=== PATIENT | female | born 1985 | race Caucasian/White ===

== ENCOUNTER 2024-10-10 12:27 | Outpatient (REF) | payer MEDICAID, SELFPAY | END 2024-10-10 12:28 | disposition home or self-care (01) | LOC: LAB 12:27 | PROVIDERS: Visit Provider Obstetrics & Gynecology | DX: N92.0 Excessive and frequent menstruation with regular cycle (principal) | CPT/HCPCS: 88305 ==

== ENCOUNTER 2024-10-26 10:00 | Outpatient (OUT) | payer MEDICAID, SELFPAY ==
--- OUTSIDE RECORDS SUMMARY | 2024-10-26 10:06 | XMS_ITS | CCD ---
Author Organization [facility] CliniSyca Care Team Providers Care Bell Captain Name Role Phone ANGY, CHRISTIAN Unavailable Unavailable ANGY, CHRISTIAN Unavailable Unavailable ANGY, CHRISTIAN Unavailable Unavailable ANGY, CHRISTIAN Unavailable Unavailable ANGY, CHRISTIAN Unavailable Unavailable REQUEST, NONE LISTED Unavailable Unavailable ANGY, CHRISTIAN Unavailable Unavailable ANGY, CHRISTIAN Unavailable Unavailable REQUEST, NONE LISTED Unavailable Unavailable ANGY, CHRISTIAN Unavailable Unavailable AGUBOSIM, ISABEL Unavailable Unavailable ANGY, CHRISTIAN Unavailable Unavailable ANGY, CHRISTIAN Unavailable Unavailable REQUEST, NONE LISTED Unavailable Unavailable ANGY, CHRISTIAN Unavailable Unavailable DILCIA DELUCA Unavailable Unavailable ANGY, CHRISTIAN Unavailable Unavailable ANGY, CHRISTIAN Unavailable Unavailable ANGY, CHRISTIAN Unavailable Unavailable ANGY, CHRISTIAN Unavailable Unavailable ANGY, CHRISTIAN Unavailable Unavailable CARLA BAGLEY Attending Unavailable Urban Newton MD Primary Care Provider Maye COFFEY, Bailee Unavailable Felicita Celaya MD Unavailable ANGY, CHRISTIAN Attending Unavailable MIRELA PARKS Attending Unavailable MIRELA PARKS Referring Unavailable SERVICES, [facility] Primary Care Unava ilable SERVICES, [facility] Primary Care Unava ilable NAZ JOLLY Attending Unavailable SERVICES, [facility] Primary Care Unava ilable GINNY BRIAN Attending Unavailable GINNY BRIAN Referring Unavailable SERVICES, [facility] Primary Care Unava ilable SERVICES, [facility] Primary Care Unava ilable SERVICES, [facility] Primary Care Unava ilable SERVICES, [facility] Primary Care Unava ilable CARLA BLACK Attending Unavaila ble SERVICES, [facility] Primary Care Unava ilable PHILIP MILNER Attending Unavailable SERVICES, [facility] Primary Care Unava ilable SRI SANCHEZ Attending Unavailable ANGY, CHRISTIAN R Referring Unavailable SERVICES, [facility] Unava CHRISTIAN Connors Referring Unavailable SERVICES, [facility] Christian Lehman DO Attending Provider [phone] Christian Travis Attending Unavailable Christian Travis Admitting Unavailable Allergies Allergy Classification Reported Allergen(s) Allergy Type Date of Onset Reaction(s) Facility (2 sources) amoxicillin Drug Allergy 10-11-19 16 RASH [facility] Repository (2 sources) desonide Drug Allergy 05-02-20 13 AOF [facility] Repository (3 sources) Penicillins; Translations: [PENICILLINS] Drug allergy (disorder) 05-02-20 13 RASH [facility] Repository (2 sources) vancomycin Drug Allergy 05-02-20 13 AOF [facility] Repository (5 sources) Acetaminophen / HYDROcodone Drug Allergy 02-09-20 13 Itching [facility] (1 source) Adhesive Tape Propensity to adverse reactions to substance 02-09-20 13 Other: See Comments [facility] (1 source) Penicillins Drug Intolerance 02-03-20 13 Vomiting [facility] (5 sources) Vancomycin Drug Allergy 02-09-20 13 Rash [facility] (4 sources) Penicillins Drug Intolerance 02-03-20 13 GI intolerance [facility] (4 sources) Wound Dressing Adhesive Drug Intolerance 02-09-20 13 [facility] (1 source) Glycopeptides (Antibiotic); Translations: [VANCOMYCIN ANALOGUES] Propensity to adverse reactions to drug (disorder) 06-26-20 [facility] Repository (1 source) Latex Propensity to adverse reactions 10-11-19 [facility] Healthcare Work Phone: (1 source) Sulfamethoxazole / Trimethoprim Drug Allergy 10-11-19 [facility] Medications Current Medications Medication Drug Class(es) Dates Sig (Normalized) Sig (Original) cephalexin 500 mg oral capsule (2 sources) Cephalosporin Antibacterial Start: 09-20-2024 End: 09-27-2024 cephalexin (Keflex) 500 MG capsule Indications: Need for prophylactic antibiotic Take 1 capsule (500 mg) by mouth in the morning and 1 capsule (500 mg) at noon and 1 capsule (500 mg) in the evening and 1 capsule (500 mg) before bedtime. Do all this for 7 days. 28 capsule 09/20/2024 09/27/2024 Active rizatriptan 10 mg oral tablet (1 source) Serotonin-1b and Serotonin-1d Receptor Agonist Start: 03-16-2020 take 1 tablet by mouth every two hours as needed, then take 2 tablets by mouth every twenty-four hours as needed rizatriptan (MAXALT) 10 mg tablet Indications: Migraine without aura and without status migrainosus, not intractable Take 1 tablet by mouth as needed (at onset of migraines, may repeat in 2 hrs. no more than 2 in 24 hrs or 2 days a week). 12 tablet 11 03/16/2020 Active tiZANidine 4 mg oral tablet (3 sources) Central alpha-2 Adrenergic Agonist Start: 12-30-2023 End: 09-20-2024 take 1 tablet by mouth at bedtime for muscle spasms tiZANidine (Zanaflex) 4 MG tablet Indications: Trapezius muscle spasm take 1 tablet by mouth at bedtime if needed for muscle spasm 10 tablet 1 12/30/2023 09/20/2024 Discontinued (Other) ZOLMitriptan 5 mg oral tablet (1 source) Serotonin-1b and Serotonin-1d Receptor Agonist Start: 02-16-2020 take 1 tablet by mouth every other day as needed ZOLMitriptan (ZOMIG) 5 mg tablet Indications: Intractable chronic migraine without aura and without status migrainosus , Medication overuse headache Take 1 tablet by mouth as needed (at onset of migraines, no more than 2 days a week). 12 tablet 11 02/16/2020 Active Problems Active Problems Problem Classification Problem Date Documented Date Episodic/Chronic Abdominal pain (1 source) Pain in female pelvis; Translations: [Pelvic and perineal pain] 10-10-2024 Episodic Asthma (1 source) Unspecified asthma, uncomplicated; Translations: [UNSPECIFIED ASTHMA UNCOMPLICATED] Onset: 12-31-19 Chronic Contraceptive and procreative management (5 sources) Encounter for sterilization; Translations: [ENCOUNTER FOR STERILIZATION] Onset: 12-18-19 Episodic Headache; including migraine (1 source) Chronic intractable migraine without aura; Translations: [Chronic migraine without aura, intractable, without status migrainosus] Onset: 10-03-1910-02-2014 Chronic Immunizations and screening for infectious disease (1 source) Encounter for screening for human papillomavirus (HPV); Translations: [ENC SCREENING HUMAN PAPILLOMAVIRUS] Onset: 12-17-19 Episodic Malaise and fatigue (1 source) Other fatigue; Translations: [OTHER FATIGUE] Onset: 11-24-19 Episodic Medical examination/evaluatio n (4 sources) Encounter for other preprocedural examination; Translations: [ENCOUNTER OTHER PREPROCEDURAL EXAM] Onset: 12-16-19 Episodic Menstrual disorders (8 sources) Irregular menstruation, unspecified; Translations: [Menorrhagia] Onset: 12-15-19 18 09-20-2024 Chronic Mood disorders (1 source) Major depressive disorder, single episode, unspecified; Translations: [CURTIS DEPRESS D/O SINGLE EPIS UNS] Onset: 12-31-19 Nausea and vomiting (2 sources) Nausea and vomiting; Translations: [Nausea with vomiting, unspecified] Onset: 09-26-19 Episodic Nervous system congenital anomalies (1 source) Congenital hydrocephalus, unspecified; Translations: [CONGENITAL HYDROCEPHALUS UNS] Onset: 12-31-19 Chronic Noninfectious gastroenteritis (1 source) Noninfective gastroenteritis and colitis, unspecified; Translations: [Noninfective gastroenteritis and colitis, unspecified] Onset: 07-29-19 Episodic Other aftercare (2 sources) Antibiotic prophylaxis indicated; Translations: [residential (current) use of antibiotics] 09-20-2024 Episodic Other connective tissue disease (1 source) Other muscle spasm; Translations: [Other muscle spasm] Onset: 09-26-19 Episodic Other female genital disorders (1 source) Abnormal uterine bleeding; Translations: [Abnormal uterine and vaginal bleeding, unspecified] 10-10-2024 Chronic Other gastrointestinal disorders (1 source) Diarrhea Onset: 07-29-19 Episodic Other nervous system disorders (1 source) Ventriculoperitoneal shunt in situ; Translations: [Presence of cerebrospinal fluid drainage device] Onset: 06-12-20 13 Chronic Other nervous system disorders (1 source) Hydrocephalus; Translations: [Hydrocephalus, unspecified] Onset: 06-12-20 13 Chronic Other nutritional; endocrine; and metabolic disorders (4 sources) Abnormal weight loss; Translations: [ABNORMAL WEIGHT LOSS] Onset: 11-14-19 Episodic Spondylosis; intervertebral disc disorders; other back problems (1 source) Neck pain Onset: 03-02-20 25 Episodic Substance-related disorders (2 sources) Nicotine dependence, cigarettes, uncomplicated; Translations: [Cannabis use, unspecified, uncomplicated] Onset: 12-31-19 18 Chronic Unclassified (4 sources) Encounter for screening for malignant neoplasm of cervix; Translations: [ENC SCREENING MALIG NEOPLASM CERV] Onset: 12-16-19 18 Episodic Unclassified (1 source) Other general symptoms and signs; Translations: [OTHER GENERAL SYMPTOMS AND SIGNS] Onset: 11-24-19 18 Episodic Unclassified (1 source) Unspecified ovarian cyst, left side; Translations: [UNSPECIFIED OVARIAN CYST LEFT SIDE] Onset: 12-17-19 18 Unclassified (1 source) GI Problem Onset: 07-29-19 25 Unclassified (1 source) Lump on Leg, Pain in Leg Onset: 10-27-19 24 Past or Other Problems Problem Classification Problem Date Documented Da te Episodic/Chronic Complications of surgical procedures or medical care (1 source) Stitch abscess; Translations: [Infection following a procedure, superficial incisional surgical site, initial encounter] Onset: 02-04-2013 Episodic Headache; including migraine (3 sources) Headache; Translations: [Headache] Onset: 09-20-2014 10-02-2014 Episodic Other connective tissue disease (1 source) Pain in right foot; Translations: [Pain in right foot] Onset: 03-21-2024 Episodic Other connective tissue disease (1 source) Foot pain Onset: 03-21-2024 Episodic Other connective tissue disease (1 source) Pain in lower limb Onset: 10-27-2023 Episodic Other injuries and conditions due to external causes (1 source) Other injury of unspecified body region, initial encounter; Translations: [Other injury of unspecified body region, initial encounter] Onset: 10-27-2023 Episodic Other non-traumatic joint disorders (1 source) Pain in right shoulder; Translations: [Pain in right shoulder] Onset: 11-05-2023 Episodic Other non-traumatic joint disorders (1 source) Shoulder pain Onset: 11-05-2023 Episodic Urinary tract infections (1 source) Urinary tract infectious disease; Translations: [Urinary tract infection, site not specified] Onset: 02-04-2013 Episodic Results Test Name Value Interpretation Reference Range Facility HCG ( test) Ql (U)O rdered By: Nona Izquierdo on 10-11-2024 Interpretation and review of laboratory results Normal [facility] Preg Test, Ur Negative Negative [facility] Momo 10-10-2024 L ------- Specimen: [id number] Received: 10/11/24 Status: NANI Sprague Num: [id number] Spec Type: Surgical Subm Dr: Christian Travis Tissues: A Endometrium - Biopsy (ENDOMETRIUM BX) Procedures: HE/2, Kassie/Shelby L4 Age/ Patient Sex Location Account Attending Physician Sachi Collins 39/F LABELL [id number] Christian Travis SPEC NUM: [id number] RECD: 10/11/24 STATUS: NANI SPRAGUE NUM: [id number] CARLO: 10/10/[address] [facility] [address]: Christian Travis ENTERED: 10/11/[address] [facility] [address]: Maxwell,Lab SPEC TYPE: Surgical DEPT: JANIS MEDINA ORDERED: HE/2, Gross/Micro L4 ORDERED: HE/2, Gross/Micro L4 Pathological Diagnosis Endometrial biopsy -Multiple small strips of the slightly disordered proliferative endometrium of the mid-phase type without hyperplasia or atypia -Incidental minor admixed portions of the ectocervical and endocervical epithelial elements also without dysplasia Clinical Information Menorrhagia Gross Description Part A is received in formalin labeled with the patients name, date of , and EM BX is a pale west mucoid material, admixed with mackenzie-pink to red-brown, delicate tissue fragments, 2.2 x 1.3 x 0.2 cm in aggregate. The specimen is filtered and entirely submitted in a single cassette. (1, ns, [id number]) PACO Specimen: [id number] Received: 10/11/24 Status: NANI Celestine Num: [id number] Spec Type: Surgical Subm Dr: Christian Travis Tissues: A Endometrium - Biopsy (ENDOMETRIUM BX) Procedures: HE/2, Gross/Micro L4 Patient: Sachi Collins [id number] (Continued) Specimen: [id number] Received: 10/11/24 (Continued) Signed (signature on file) Matthew Beauchamp MD 10/12/24 1114 Specimen: [id number] Received: 10/11/24 Status: NANI Celestine Num: [id number] Spec Type: Surgical Subm Dr: Christian Travis Tissues: A Endometrium - Biopsy (ENDOMETRIUM BX) Procedures: Kassie LAND/Shelby Cobian Patient: Sachi Collins [id number] (Continued) Specimen: [id number] Received: 10/11/24 (Continued) Microscopic Description Microscopic examination is performed CPT Codes 91340 Specimen: [id number] Received: 10/11/24 Status: NANI Sprague Num: [id number] Spec Type: Surgical Subm Dr: Christian Travis Tissues: A Endometrium - Biopsy (ENDOMETRIUM BX) Procedures: MORELIA/Vidal, Gross/Micro L4 Patient: Sachi Collins [id number] (Continued) Signed (signature on file) Josafat Beauchamp MD 10/12/24 1114 Normal [facility] US PELVIC WITH TRANSVAGINALo n 09-29-2024 US PELVIC WITH TRANSVAGINAL US PELVIC WITH TRANSVAGINAL HISTORY: A 39-year-old female with the history of the menorrhagia with irregular cycles. TECHNIQUE: Multiple real-time images of the pelvis are obtained by using transabdominal and transvaginal approaches. Color Doppler study is performed. COMPARISON: Comparison is made with pelvic ultrasound examination of 04/03/2006. FINDINGS: Uterus measures 11.5 x 5.9 x 4.4 cm. Endometrial echo stripe thickness was a 1.5 cm. No focal mass is seen in the uterine wall. There are nabothian cyst in the cervical portion of the uterus. Right ovary measures 5.8 x 6.0 x 3.0 cm. There is a cyst in the right ovary and measures 2.5 x 2.4 x 2.9 cm. Left ovary measures 3.8 x 2.2 x 1.3 cm. Left ovary appears unremarkable. No other adnexal mass is identified. Color Doppler study reveals presence of the color Doppler flow in both ovaries. No evidence of free fluid in the cul-de-sac. IMPRESSION: * Prominent uterus without evidence of discrete mass. Nabothian cyst in the cervical portion of the uterus. Thickening of the endometrial echo stripe. * There is a 2.5 x 2.4 x 2.9 cm right ovarian cyst. Left ovary is normal. * No free fluid is seen in the cul-de-sac. Finalized by Aubrey Rodriguez MD on 09/29/2024 6:22 PM Normal [facility] CBC AND AUTO DIFFon 09-29-19 25 ABSOLUTE BASOPHIL 0.1 X10E9/L Normal 0.0-0.2 [facility] Comment on above: Performed By: #### 3 024-7, HA1C, 3016-3, 38945-9, CBCA #### [facility] ([id number]) [address], [address] [place] [address] #### PINR, [id number] #### [facility] ([id number]) [address] [place] [address] ABSOLUTE NEUTROPHIL 9.1 X10E9/L High 1.5-6.6 [facility] Comment on above: Performed By: #### 3 024-7, BRAYAN, 3015-09, , CBCA #### [facility] ([id number]) [address], [address] [place] [address] #### BRIELLE, [id number] #### [facility] ([id number]) [address] [place] [address] Basophils/100 WBC (Bld) 0.5 % Normal [facility] Comment on above: Performed By: #### 3 024-7, BRAYAN, 3015-09, , CBCA #### [facility] ([id number]) [address] [facility] [address] [place] [address] #### BRIELLE, [id number] #### [facility] ([id number]) [address] [place] [address] Eosinophils (Bld) [#/Vol] 0.1 10*3/uL Normal 0.0-0.4 [facility] Comment on above: Performed By: #### 3 024-7, BRAYAN, 3015-09, , CBCA #### [facility] ([id number]) [address], [address] [place] [address] #### PINR, [id number] #### [facility] ([id number]) [address] [place] [address] Eosinophils/100 WBC (Bld) 1.0 % Normal [facility] Comment on above: Performed By: #### 3 024-7, BRAYAN, 3015-09, , CBCA #### [facility] ([id number]) [address], [address] [place] [address] #### DAVR, [id number] #### [facility] ([id number]) [address] [place] [address] Erythrocyte distribution width (RBC) [Ratio] 15.5 % High 11.5-15.0 [facility] Comment on above: Performed By: #### 3 024-7, HA1C, 3015-09, , CBCA #### [facility] ([id number]) [address] [address], [address] [place] [address] #### PINR, [id number] #### [facility] ([id number]) [address] [place] [address] Hematocrit (Bld) [Volume fraction] 37.1 % Normal 35-47 [facility] Comment on above: Performed By: #### 3 024-7, HAGermán, 3015-09, , CBCA #### [facility] ([id number]) [address] [facility], [address] [place] [address] #### PINR, [id number] #### [facility] ([id number]) [address] [place] [address] Hemoglobin (Bld) [Mass/Vol] 12.5 g/dL Normal 11.7-15.5 [facility] Comment on above: Performed By: #### 3 024-7, HAGermán, 3015-09, , CBCA #### [facility] ([id number]) [address] [facility] [facility], [address] [place] [address] #### PINR, [id number] #### [facility] ([id number]) [address] [place] [address] Lymphocytes (Bld) [#/Vol] 1.8 10*3/uL Normal 1.0-3.5 [facility] Comment on above: Performed By: #### 3 024-7, HAGermán, 3, , CBCA #### [facility] ([id number]) [address] [facility] [facility] [address] [place] [address] #### BRIELLE, [id number] #### [facility] ([id number]) [address] [place] [address] 43798 Lymphocytes/100 WBC (Bld) 15.6 % Normal [facility] Comment on above: Performed By: #### 3 024-7, HA1C, 3, , CBCA #### [facility] ([id number]) [address] [facility], [address] [address] #### BRIELLE, [id number] #### [facility] ([id number]) [address] [place] [address]2320 MCH (RBC) [Entitic mass] 29.7 pg Normal 27-34 [facility] Comment on above: Performed By: #### 3 024-7, HA1C, 3015-09, , CBCA #### [facility] ([id number]) [address] [place] [address], [address] [address] #### BRIELLE, [id number] #### [facility] ([id number]) [address] [place] [address]248 MCHC (RBC) [Mass/Vol] 33.6 g/dL Normal 32-36 [facility] Comment on above: Performed By: #### 3 024-7, HA1C, 3, , CBCA #### [facility] ([id number]) [address] [facility], [address] [address] #### PINR, [id number] #### [facility] ([id number]) [address] [place] [address]15 MCV (RBC) [Entitic vol] 88 fL Normal 80-100 [facility] Comment on above: Performed By: #### 3 024-7, BRAYAN, 3015-09, , CBCA #### [facility] ([id number]) [address], [address] [place] [address] #### DAVR, [id number] #### [facility] ([id number]) [address] [place] [address]606 Monocytes (Bld) [#/Vol] 0.5 10*3/uL Normal 0-0.9 [facility] Comment on above: Performed By: #### 3 024-7, BRAYAN, 3015-09, , CBCA #### [facility] ([id number]) [address] [facility], [address] [place] [address] #### BRIELLE, [id number] #### [facility] ([id number]) [address] [place] [address] Monocytes/100 WBC (Bld) 4.4 % Normal [facility] Comment on above: Performed By: #### 3 024-7, BRAYAN, 3015-09, , CBCA #### [facility] ([id number]) [address], [address] [place] [address] #### BRIELLE, [id number] #### [facility] ([id number]) [address] [place] [address]86 Neutrophils/100 WBC (Bld) 78.5 % Normal [facility] Comment on above: Performed By: #### 3 024-7, BRAYAN, 3015-09, , CBCA #### [facility] ([id number]) [address], [address] [place] [address] #### BRIELLE, [id number] #### [facility] ([id number]) [address] [place] [address] Platelet mean volume (Bld) [Entitic vol] 7.8 fL Normal 7-12 [facility] Comment on above: Performed By: #### 3 024-7, HA1C, 3015-3, , CBCA #### [facility] ([id number]) [address] [place] [address], [address] [place] [address] #### PINR, [id number] #### [facility] ([id number]) [address] [place] [address]20 Platelets (Bld) [#/Vol] 375 10*3/uL Normal 150-450 [facility] Comment on above: Performed By: #### 3 024-7, BRAYAN, 3, , CBCA #### [facility] ([id number]) [address] [place] [address], [address] [address] #### PINR, [id number] #### [facility] ([id number]) [address] [place] [address]86 RBC COUNT 4.20 X10E12/L Normal 3.80-5.20 [facility] Comment on above: Performed By: #### 3 024-7, HAGermán, 3, , CBCA #### [facility] ([id number]) [address] [place] [address], [address] [place] [address] #### PINR, [id number] #### [facility] ([id number]) [address] [place] [address] 35613 WBC (Bld) [#/Vol] 11.5 10*3/uL High 4.0-11.0 [facility] Comment on above: Performed By: #### 3 024-7, HAGermán, 3015-, , CBCA #### [facility] ([id number]) [address] [facility], [address] [place] [address] #### PINR, [id number] #### [facility] ([id number]) [address] [place] [address] FREE T4on 09-28-2024 Free T4 [Mass/Vol] 0.92 ng/dL Normal 0.61-1.60 [facility] Comment on above: Performed By: #### N UM #### [facility] ([id number]) [address] [place] [address]4797 HCG.beta subunit IA 3rd IS Q non 09-28-2024 SERUM B HCG,3RD I.S. <5 Normal [facility] Comment on above: Result Comment: NEW REFERENCE RANGE WEEKS (SINCE LMP) MIU/mL 3 WEEKS 5 - 50 4 WEEKS 5 - 426 5 WEEKS 18 - 7,340 6 WEEKS 1,080 - 56,500 7-8 WEEKS 7,650 - 229,000 9-12 WEEKS 25,700 - 288,000 13-16 WEEKS 13,300 - 254,000 17-24 WEEKS 4,060 - 165,400 25-40 WEEKS 3,640 - 117,000 MALES AND NON- FEMALES - <5 MIU/mL This test has been FDA approved for use in only. Elevated levels are not necessarily diagnostic for trophoblastic or nontrophoblastic neoplasms. Performed By: #### 3 024-7, HA1C, 3016-3, 46899-5, CBCA #### [facility] ([id number]) [address] [facility], [address] [place] [address] #### PINR, [id number] #### [facility] ([id number]) [address] [place] [address]9555 HGB A1C (GLYCO-HGB)on 2024 Glucose [Mass/Vol] 105 mg/dL Normal [facility] Comment on above: Performed By: #### N UM #### [facility] ([id number]) [address] [place] [address]18 HbA1c (Bld) [Mass fraction] 5.3 % Normal 4.4-5.6 [facility] Comment on above: Result Comment: NOTE ADA Guidelines Result HgbA1c Normal : less than 5.7 % Prediabetes : 5.7 % to 6.4 % Diabetes : > 6.4 % Use with caution in patients with abnormal hemoglobin variants as the half-life of red blood cells and in vivo glycation rates are affected. Performed By: #### N UM #### [facility] ([id number]) [address] [place] [address] PROTIME AND INRon 09-28-2024 INR Coag (PPP) [Relative time] 0.9 {INR} Normal 0.9-1.2 [facility] Comment on above: Performed By: #### 3 024-7, BRAYAN, 3015-09, , CBCChula #### [facility] ([id number]) [address], [address] [place] [address] #### BRIELLE, [id number] #### [facility] ([id number]) [address] [place] [address] 49303 PT Coag (PPP) [Time] 11.0 s Normal 9.8-13.2 [facility] Comment on above: Result Comment: NEW REFERENCE RANGE Performed By: #### 3 024-7, BRAYAN, 3, , CBCA #### [facility] ([id number]) [address], [address] [place] [address] #### PINR, [id number] #### [facility] ([id number]) [address] [place] [address] 68022 TSH Qnon 09-28-2024 TSH 1.54 uIU/mL Normal 0.49-4.67 [facility] Comment on above: Performed By: #### N UM #### [facility] ([id number]) [address] [place] [address] 39182 aPTT Coag (PPP) [Time]on aPTT Coag (Bld) [Time] 30 s Normal 26-37 [facility] Comment on above: Result Comment: NEW REFERENCE RANGE Performed By: #### 3 024-7, HA1C, 3016-3, 51364-9, CBCA #### [facility] ([id number]) [address] [place] [address], [address] [place] [address] #### PINR, [id number] #### [facility] ([id number]) [address] [place] [address] 86712 BASIC METABOLIC PANLon 07-29 Anion gap [Moles/Vol] 12 mmol/L Normal 5-15 [facility] Comment on above: Performed By: #### C BCA, BMP #### [facility] ([id number]) [address] [place] [address] 11004 Calcium [Mass/Vol] 9.3 mg/dL Normal 8.5-10.5 [facility] Comment on above: Performed By: #### C BCA, BMP #### [facility] ([id number]) [address] [place] [address] 70722 Chloride [Moles/Vol] 107 mmol/L Normal 98-109 [facility] Comment on above: Performed By: #### C BCA, BMP #### [facility] ([id number]) [address] [place] [address] 38369 CO2 [Moles/Vol] 20 mmol/L Low 22-32 [facility] Comment on above: Performed By: #### C BCA, BMP #### [facility] ([id number]) [address] [place] [address] 52986 Creatinine [Mass/Vol] 0.77 mg/dL Normal 0.40-1.00 [facility] Comment on above: Result Comment: METH OD TRACEABLE TO IDMS STANDARD Performed By: #### C BCA, BMP #### [facility] ([id number]) [address] [place] [address] 79228 eGFR (CKD-EPI) NON-RACE DEPENDENT >90 Normal >59 [facility] Comment on above: Result Comment: Reported eGFR is based on the CKD-EPI 2020 equation that does not use a race coefficient. Performed By: #### C BCA, BMP #### [facility] ([id number]) [address] [place] [address] 37044 Glucose [Mass/Vol] 171 mg/dL High 65-99 [facility] Comment on above: Performed By: #### C BCA, BMP #### [facility] ([id number]) [address] [place] [address] 59259 Potassium [Moles/Vol] 3.5 mmol/L Normal 3.5-5.0 [facility] Comment on above: Performed By: #### C BCA, BMP #### [facility] ([id number]) [address] [place] [address] 03972 Sodium [Moles/Vol] 139 mmol/L Normal 134-146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 cyst. Followup ultrasound evaluation in 6 weeks could be performed to document regression.2. Thickened, but homogeneous endometrium; endometrial hyperplasia? Dictated by: Dilcia Deluca M.D. on 12/14/2017 at 17:02 Approved by: Dilcia Deluca M.D. on 12/14/2017 at 17:05 Normal [facility] CBC AUTO DIFFon 11-13-2017 Basophils Auto #/vol (Bld) 0.1 103/ul Normal 0.0-0.1 [facility] Comment on above: Performed By: #### C BC ####[facility] [address] [place] [id number] Basophils/100 WBC Auto (Bld) 0.6 % Normal 0.2-2.0 [facility] Comment on above: Performed By: #### C BC ####[facility] Cgpynpmzsn[address] [place] Eosinophils 0.1 103/ul Normal 0.0-0.7 [facility] Comment on above: Performed By: #### C BC ####[facility] [address] [place] [address] [place] Eosinophils/100 leukocytes 0.6 % Critically low 0.9-7.0 [facility] Comment on above: Performed By: #### C BC ####[facility] [address] [place] [address] [place] Erythrocyte distribution width Auto Ratio (RBC) 16.1 % Critically high 11.0-15.0 [facility] Comment on above: Performed By: #### C BC ####[facility] [address] [place], [place] [address] Erythrocytes (RBC) 4.60 106/ul Normal 4.20-5.40 [facility] Comment on above: Performed By: #### C BC ####[facility] [address]virx86[address] [place] [id number] Hematocrit (HCT) 38.7 % Normal 36.0-48.0 [facility] Comment on above: Performed By: #### C BC ####[facility] Cthvgolrox4[address] [place] [address] Hemoglobin mass conc (Bld) 12.9 g/dL Normal 12.0-16.0 [facility] Comment on above: Performed By: #### C BC ####[facility] Aanduprlul0213 [address] [place] IG # 0.03 10e3/ul Normal 0.00-0.03 [facility] Comment on above: Performed By: #### C BC ####[facility] Txpnyrovfk8198 [address] [place] IG % 0.4 % Normal 0.0-0.5 [facility] Comment on above: Performed By: #### C BC ####[facility] [address] [place] [address] [place] Lymphocytes 2.2 103/ul Normal 1.2-3.8 [facility] Comment on above: Performed By: #### C BC ####[facility] [address] [place] [address] [place] Lymphocytes/100 leukocytes 26.1 % Normal 20.5-60.0 [facility] Comment on above: Performed By: #### C BC ####[facility] Jr[address] [place] [address] [place] MANUAL DIFF REQ NO Normal [facility] Comment on above: Performed By: #### C BC ####[facility] [address] [place] [address] [place] MCH 28.0 pg Normal 26.7-34.0 [facility] Comment on above: Performed By: #### C BC ####[facility] Yqrvgspkrj[address] [place] MCHC mass conc (RBC) 33.3 g/dL Normal 29.9-35.2 [facility] Comment on above: Performed By: #### C BC ####[facility] [address] [place] [address] [place] MCV 84.1 fL Normal 81.0-99.0 [facility] Comment on above: Performed By: #### C BC ####[facility] [address] [place] [address] [place] Monocytes 0.5 103/ul Normal 0.3-0.8 [facility] Comment on above: Performed By: #### C BC ####[facility] V[address]exj4[address] [place] [id number] Monocytes/100 leukocytes 5.5 % Normal 1.7-12.0 [facility] Comment on above: Performed By: #### C BC ####[facility] Q[address] [place] [id number] Neutrophils 5.5 103/ul Normal 1.4-6.5 [facility] Comment on above: Performed By: #### C BC ####[facility] Wdodlposci8523 [address] Cast[address]ano Neutrophils/100 WBC Auto (Bld) 66.8 % Normal 43.0-75.0 [facility] Comment on above: Performed By: #### C BC ####[facility] [address] [place] [address] [place] Platelet mean volume (PMV) 9.7 fL Normal 9.5-13.5 [facility] Comment on above: Performed By: #### C BC ####[facility] [address] [place] [address] [place] Platelets 267 103/ul Normal 150-450 [facility] Comment on above: Performed By: #### C BC ####[facility] Iwndlwcftq9204 [address] Cast[address]ano WBC (Leukocytes) 8.3 103/ul Normal 4.0-11.0 [facility] Comment on above: Performed By: #### C BC ####[facility] Wdwbsktleq5602 [address] [place] FERRITINon 11-13-2017 FERRITIN 6.2 ng/mL Normal 6.2-137.0 [facility] Comment on above: Performed By: #### F ERR ####[facility] Raqxbbeumc[address] [place] PROF 14(COMP METB)on 04-20-2 018 Alanine aminotransferase (ALT) 30 U/L Normal 9-52 [facility] Comment on above: Performed By: #### C MP, TSH ####[facility] Wsiofbiykl[address] [place] Albumin 4.5 g/dL Normal 3.5-5.0 [facility] Comment on above: Performed By: #### C MP, TSH ####[facility] Pienldyznx[address] [place] Albumin/Globulin Ratio 1.9 {ratio} Normal [facility] Comment on above: Performed By: #### C MP, TSH ####[facility] [address] [place] [address] [place] Alkaline phosphatase (ALP) 44 U/L Normal 38-126 [facility] Comment on above: Performed By: #### C MP, TSH ####[facility] [address] [place] [address] [place] Anion gap 13.1 mmol/L Normal [facility] Comment on above: Performed By: #### C MP, TSH ####[facility] [address] [place] [address] [place] Aspartate aminotransferase (AST) 18 U/L Normal 14-36 [facility] Comment on above: Performed By: #### C BENEDICT, TSH ####[facility] [address] [place] [address] [place] Bilirubin Ql (U) 0.5 mg/dL Normal 0.2-1.3 [facility] Comment on above: Performed By: #### C MP, TSH ####[facility] Dqkizxxphb[address] [place] BUN/Creatinine Ratio 14.9 mg/mg Normal [facility] Comment on above: Performed By: #### C MP, TSH ####[facility] [address] [place] [address] [place] Calcium 9.9 mg/dL Normal 8.4-10.2 [facility] Comment on above: Performed By: #### C MP, TSH ####[facility] [address]32[address] [place], [place] [address]Izlvew [place] Chloride 102 mmol/L Normal 98-107 [facility] Comment on above: Performed By: #### C MP, TSH ####[facility] [address]xax[address]uhma3634 [place], [place] [address] CO2 25.0 mmol/L Normal 22.0-30.0 [facility] Comment on above: Performed By: #### C MP, TSH ####[facility] Dakoeimgwx7354 [place] [id number] Creatinine 0.68 mg/dL Normal 0.52-1.04 [facility] Comment on above: Performed By: #### C MP, TSH ####[facility] [address]bi[address] [place] [id number] eGFR (non-black) mL/min/{1.73_m2} Normal >=60 [facility] Comment on above: Performed By: #### C MP, TSH ####[facility] Cmngz[address]isy5862 [place] [id number] Globulin 2.4 g/dL Normal [facility] Comment on above: Performed By: #### C MP, TSH ####[facility] [address] [place] [address] Glucose mass conc 84 mg/dL Normal 74-106 [facility] [place] Comment on above: Performed By: #### C MP, TSH ####[facility] [address] [place] [id number] Potassium molar conc 4.0 mmol/L Normal 3.4-5.0 [facility] Comment on above: Performed By: #### C MP, TSH ####[facility] Rtfvkltqdz5808 [place] [id number] Protein 6.9 g/dL Normal 6.1-8.2 [facility] Comment on above: Performed By: #### C MP, TSH ####[facility] [address]z74[address] [place] [id number] Sodium 136 mmol/L Critically low 137-145 [facility] Comment on above: Performed By: #### C MP, TSH ####[facility] [address] [place] [address] [place] Urea nitrogen 10.0 mg/dL Normal 7.0-17.0 [facility] Comment on above: Performed By: #### C MP, TSH ####[facility] [address] [place] [address] [place] TSHon 11-13-2017 Thyroid stimulating hormone (TSH) 1.060 uIU/mL Normal 0.470-4.680 [facility] Comment on above: Performed By: #### C MP, TSH ####[facility] [address] [place] [address] [place] Thyroid stimulating hormone (TSH) SEE BELOW Normal [facility] Comment on above: Result Comment: <0.3 4 UIU/ml HYPERTHYROID 0.34-5.60 UIU/ml EUTHYROID >5.60 UIU/ml HYPOTHYROID Performed By: #### C MP, TSH ####[facility] [address] [place] [address] [place] VITAMIN D 25 OHon 11-13-2017 VIT D 25-OH 35.7 ng/mL Normal [facility] Comment on above: Performed By: #### V ITAD ####[facility] [address] [place] [address] [place] VIT D RANGES SEE BELOW Normal [facility] Comment on above: Result Comment: <20 ng/mL Vit D deficient 20 - <30 ng/mL Vit D insufficient 30 - 100 ng/mL Vit D sufficient >100 ng/mL Potential Toxicity Performed By: #### V ITAD ####[facility] [address] [place] [address] [place] VITDH PLEASE NOTE: NORMAL RANGE CHANGE 03-31-2013, TESTING PERFORMED AT [facility]. Normal [facility] Comment on above: Performed By: #### V ITAD ####[facility] [address] [place] [address] [place] Vital Signs Date Time Vital Sign Value Performing Clinician Faci lity 10-10-2024 14:33-0400 Body mass index (BMI) [Ratio] 25.77 kg/m2 Christian Angy DO Work Phone: [facility] 10-10-2024 14:33-0400 Body weight 68.09 kg Christian Angy DO Work Phone: [facility] 10-10-2024 14:33-0400 Diastolic blood pressure 74 mm[Hg] Christian Angy DO Work Phone: [facility] 10-10-2024 14:33-0400 Systolic blood pressure 118 mm[Hg] Christina Angy DO Work Phone: [facility] 09-20-2024 09:25-0500 Body mass index (BMI) [Ratio] 26.16 kg/m2 Christian Angy DO Work Phone: [facility] 09-20-2024 09:25-0500 Body weight 69.13 kg Christian Angy DO Work Phone: [facility] 09-20-2024 09:25-0500 Diastolic blood pressure 82 mm[Hg] Christian Angy DO Work Phone: [facility] 09-20-2024 09:25-0500 Systolic blood pressure 110 mm[Hg] Christian Angy DO Work Phone: [facility] Healthcare Encounters Encounter Date Encounter Type Care Provider Facility Start: 10-10-2024 End: 10-10-2024 Patient encounter procedure Christian Angy DO Work Phone: [facility] Comment on above: Pre-op examination; Menorrhagia with regular cycle; Abnormal uterine bleeding; Pelvic pain in female Start: 10-10-2024 End: 10-10-2024 Preprocedural examination done Christian Angy DO Work Phone: [facility] Start: 10-10-2024 End: 10-10-2024 amb[facility] Work Phone: Start: 10-10-2024 End: 10-10-2024 Departed Referred Christian Angy DO Work Phone: [facility] Start: 09-28-2024 End: 09-28-2024 ambulatory CHRISTIAN R ANGY [facility] Start: 09-25-2024 End: 09-25-2024 Emergency department patient visit [facility] Start: 09-20-2024 End: 09-20-2024 Bamboo flowsheet Christian Angy DO Work Phone: [facility] Start: 09-20-2024 End: 09-20-2024 Bamboo flowsheet Christian Angy DO Work Phone: [facility] Start: 09-20-2024 End: 09-20-2024 Office outpatient visit 15 minutes Christian Angy DO Work Phone: [facility] Comment on above: Menorrhagia with reg ular cycle; Need for prophylactic antibiotic Start: 09-20-2024 End: 09-20-2024 ambulatory CHRISTIAN ANGY Not Available Start: 07-29-2024 End: 07-29-2024 Emergency department patient visit [facility] Start: 07-29-2024 End: 07-29-2024 Emergency department patient visit [facility] Start: 07-14-2024 End: 07-14-2024 ambulatory Ruperto Sanjay Ruperto DO Work Phone: [facility] Comment on above: Pain Questionnaire Start: 07-14-2024 End: 07-14-2024 E-mail encounter from caregiver Ruperto E Ruperto DO Work Phone: [facility] Start: 04-25-2024 End: 04-25-2024 Emergency department patient visit [facility] Start: 03-21-2024 End: 03-22-2024 Emergency department patient visit GINNY BRIAN [facility] Start: 11-09-2023 End: 11-09-2023 ambulatory MIRELA PARKS Not Available Start: 11-05-2023 End: 11-06-2023 Emergency department patient visit [facility] Start: 10-27-2023 End: 10-27-2023 Emergency department patient visit [facility] Start: 09-19-2020 End: 09-19-2020 Emergency department patient visit CARLA BGALEY [facility] Start: 01-28-2018 Ambulatory CHRISTIAN ANGY Facility:[facility] 1 Start: 12-25-2017 End: 12-25-2017 Ambulatory CHRISTIAN ANGY Facility:[facility] Start: 12-15-2017 End: 12-15-2017 Ambulatory CHRISTIAN ANGY Facility:[facility] Start: 12-15-2017 End: 12-16-2017 Ambulatory CHRISTIAN ANGY Facility:[facility] Start: 12-14-2017 End: 12-15-2017 Ambulatory CHRISTIAN ANGY Facility:[facility] Start: 11-13-2017 End: 11-14-2017 Ambulatory CHRISTIAN ANGY Facility:[facility] Procedures Date Procedure Procedure Detail Performing Clinician Start: 10-11-2024 Urine test visual color cmprsn meths Christian Angy DO Work Phone: Plan of Treatment Date Care Activity Detail Author Start: 11-17-2024 End: 11-17-2024 Patient encounter procedure 11/17/2024 8:30 AM EDT Office Visit [facility] [address] [place] [id number] Ritika Cyr PA [address] [place] [address] [facility] Start: 10-10-2024 End: 10-10-2024 Patient encounter procedure 10/10/2024 2:30 PM EDT Procedure Visit [facility] [address] [place] [id number] Christian Travis, DO [address] [place] [address] [facility] Start: 09-20-2024 End: 09-20-2025 aPTT in Blood by Coagulation assay APTT Lab Routine Menorrhagia with regular cycle Expected: 09/20/2024 (Approximate), Expires: 09/20/2025 [facility] Healthcare Comment on above: Expected: 09/20/2024 (Approximate), Expires: 09/20/2025 Start: 09-20-2024 End: 09-20-2025 US Pelvis US Pelvis w/ TV Imaging Routine Menorrhagia with regular cycle Expected: 09/20/2024, Expires: 09/20/2025 [facility] Comment on above: Expected: 09/20/2024 , Expires: 09/20/2025 Start: 09-20-2024 End: 09-20-2024 Patient encounter procedure 09/20/2024 9:40 AM EST Office Visit [facility] [address] [address] Christian Travis DO [address] [place] [address] Arrived [facility] Comment on above: Arrived Start: 07-18-2024 End: 07-18-2024 Patient encounter procedure 07/18/2024 9:30 AM EST Office Visit [facility] [address] [place] [address] [place] [address] [facility] [address] [place] [address] C5 and C6 Bulging; Pinched Nerve; Pain Management Comment on above: C5 and C6 Bulging; P inched Nerve; Start: 03-27-2024 Covid-19 Vaccine ( season) Covid-19 Vaccine ( season) [facility] Start: 03-27-2024 Influenza vaccination Influenza Vacc ine (#1) [facility] Start: 2015 Screening for malign ant neoplasm of cervix [facility] Start: 2006 Screening for malign ant neoplasm of cervix [facility] Start: 2004 Hepatitis B Vaccine (1 of 3 - 19+ 3-dose series) Hepatitis B Vaccine (1 of 3 - 19+ 3-dose series) [facility] Start: 2004 Urine microalbumin profile DTaP,Tdap,Td Vaccine (1 - Tdap) [facility] Start: 2003 Anxiety Screening Anxiety Screening [facility] Start: 2003 Depression Screening Depression Scre ening [facility] Start: 2003 Hepatitis C screening Hepatitis C Sc james [facility] Start: 2003 HIV screening HIV Screening [facility] Biopsy endometrium Biopsy endome trium Procedures Routine Pre-op examination Menorrhagia with regular cycle Abnormal uterine bleeding Pelvic pain in female Ordered: 10/10/2024 [facility] [employer] Work Phone: Comment on above: Ordered: 10/10/2024 CBC W Auto Different ial panel - Blood CBC and differential Lab Routine Menorrhagia with regular cycle Ordered: 09/20/2024 [facility] [employer] Work Phone: Comment on above: Ordered: 09/20/2024 hCG, quantitative, hCG, quantitative, Lab Routine Menorrhagia with regular cycle Ordered: 09/20/2024 [facility] [employer] Comment on above: Ordered: 09/20/2024 Hemoglobin A1c/Hemoglobin.total in Blood Hemoglobin A1c Lab Routine Menorrhagia with regular cycle Ordered: 09/20/2024 [facility] [employer] Comment on above: Ordered: 09/20/2024 Prothrombin time (PT ) in Blood by Coagulation assay Protime-INR Lab Routine Menorrhagia with regular cycle Ordered: 09/20/2024 [facility] [employer] Comment on above: Ordered: 09/20/2024 Thyrotropin [Units/volume] in Serum or Plasma TSH Lab Routine Menorrhagia with regular cycle Ordered: 09/20/2024 [facility] Comment on above: Ordered: 09/20/2024 Thyroxine (T4) free [Mass/volume] in Serum or Plasma T4, free Lab Routine Menorrhagia with regular cycle Ordered: 09/20/2024 [facility] Comment on above: Ordered: 09/20/2024 Payers Date Payer Category Payer Self-pay 2022 Medicaid [id number] 2022 Medicaid [id number] 2020 Unknown 1985 Unknown [id number] 2.16.8 [id number] 1985 Unknown [id number] 2.16.84 0.1.573943.3.579.2.1259 1985 Unknown [id number] 2.16.84 0.1.986503.3.579.2.1259 1985 Unknown [id number] 2.16.84 0.1.994128.3.579.2.1259 1985 Unknown [id number] 2.16. 840.1.422146.3.579.2.1286 1985 Unknown [id number] 2.16. 840.1.730593.3.579.2.6 1985 Unknown [id number] 2.16. 840.1.282802.3.579.2.6 1985 Unknown [id number] 2.16. 840.1.236365.3.579.2.6 1985 Unknown [id number] 2.16. 840.1.485942.3.579.2.6 1985 Unknown [id number] 2.16.8 40.1.226503.3.579.2.6 1985 Unknown [id number] 2.16.8 40.1.857027.3.579.2.1285 1985 Unknown [id number] 2.16.8 40.1.108368.3.579.2.1286 1985 Unknown [id number] 2.16.8 40.1.632109.3.579.2.1285 1985 Unknown [id number] 2.16.8 40.1.128941.3.579.2.1285 1985 Unknown [id number] 2.16.8 40.1.362118.3.579.2.1286 1959 Self-pay [id number] 1959 Unknown [id number] Social History Date Type Detail Facility Start: 02-04-2013 End: 11-09-2023 Tobacco smoking status NHIS Smokes tobacco daily [facility] History of tobacco use Cigarette Smoker C [facility] Start: 02-04-2013 End: 11-09-2023 Cigarettes smoked current (pack per day) - Reported 0.1 [facility] Start: 02-04-2013 End: 11-09-2023 Tobacco use and exposure Smokeless tobacco non-user [facility] Start: 02-16-2020 Alcoholic beverage intake Current non-drinker of alcohol (finding) [facility] Start: 02-16-2020 End: 11-09-2023 Tobacco use panel [facility] Adult Depression Screening Assessment 4 [facility] Start: 02-02-2013 Tobacco Comment 7 cigarettes per day [facility] Start: 1985 Sex assigned at Not on file C [facility] Start: 11-09-2023 End: 10-10-2024 Alcoholic beverage intake Current drinker of alcohol (finding) [facility] Tobacco smoking stat [facility] Unknown if ever smoked [facility] Work Phone: Start: 10-12-2024 Sex Female (finding) [facility] Start: 1985 Sex Assigned At Female F [facility] Medical Equipment Procedure Code Equipment Code Equipment Origin al Text Equipment Identifier Dates Kit Cath Bctsl H km Shunt Myra - [id number] Start: 05-12-2014 Conn Shunt Csf S tr Radpq - [id number] Start: 05-12-2014 Valve Shunt [employer] Estimator And Drafter Yao 14cm - [id number] Start: 05-12-2014 History of Present illness Narrative 10-10-2024 Connie Mcgrath - 10/10/2024 2:30 PM EDT Note Date & Type Note Facility 10-10-2024 History of Presen t illness Narrative Reason for Appointment: Patient ID: Sachi Collins is a 39 y.o. female who presents for EMBX and Pre-op Visit Patient presents today for Pre Op/Endometrial Biopsy appointment. Patient is scheduled to undergo Endometrial Ablation with Maggie on 11/04/[address] Travis at [facility]. MEDICATIONS No current outpatient medications ALLERGIES Allergies Allergen Reactions Hydrocodone-Acetaminophen Itching Has been tolerating percolone/percocet without issue Latex Other Reaction(s): Unknown Penicillins GI intolerance Other Reaction(s): Vomiting Sulfamethoxazole-Trimethoprim Other Reaction(s): Comments: Patient has not had any success with this medication for the last 10 years. Hx of extended use of Bactrim from forward. Per patient. GB Wound Dressing Adhesive Other Reaction(s): Other: See Comments Blistering Other Reaction(s): Rash Comments: foam tape Vancomycin Rash Denise syndrome Other Reaction(s): Rash , Itching PROBLEMS Active Ambulatory Problems Diagnosis Date Noted No Active Ambulatory Problems Resolved Ambulatory Problems Diagnosis Date Noted No Resolved Ambulatory Problems Past Medical History: Diagnosis Date Hydrocephalus (CMS/HCC) HISTORY PAST MEDICAL HISTORY SOCIAL HISTORY Past Medical History: Diagnosis Date Hydrocephalus (CMS/HCC) Social History Tobacco Use Smoking status: Every Day Current packs/day: 0.50 Types: Cigarettes Smokeless tobacco: Never Substance Use Topics Alcohol use: Yes Drug use: Not on file FAMILY HISTORY Family History Problem Relation Name Age of Onset Rheum arthritis Mother SURGICAL HISTORY Past Surgical History: Procedure Laterality Date BRAIN SURGERY SHUNT CT GUIDED IMAGING FOR STEREOTACTIC LOCALIZATION 09/26/2014 CT GUIDED IMAGING FOR STEREOTACTIC LOCALIZATION TUBAL LIGATION REVIEW OF SYSTEMS Review of Systems: Review of Systems Constitutional: Negative. HENT: Negative. Eyes: Negative. Respiratory: Negative. Cardiovascular: Negative. Gastrointestinal: Negative. Genitourinary: Positive for menstrual problem and pelvic pain. Musculoskeletal: Negative. Skin: Negative. Neurological: Negative. All other systems reviewed and are negative. Hematological: Negative. Endocrine: Negative. Allergic/Immunologic: Negative. OBJECTIVE Objective: Physical Exam Constitutional: Appearance: Normal appearance. She is well-developed. Genitourinary: Vulva normal. Cardiovascular: Rate and Rhythm: Normal rate and regular rhythm. Pulmonary: Effort: Pulmonary effort is normal. Breath sounds: Normal breath sounds. Abdominal: General: Bowel sounds are normal. There is no distension. Palpations: Abdomen is soft. Tenderness: There is no abdominal tenderness. There is no guarding or rebound. Musculoskeletal: General: No swelling. Normal range of motion. Right lower leg: No edema. Left lower leg: No edema. Neurological: Mental Status: She is alert and oriented to person, place, and time. Skin: General: Skin is warm and dry. Psychiatric: Mood and Affect: Mood normal. Behavior: Behavior normal. Vitals and nursing note reviewed. Exam conducted with a rehab spec present. Vitals: Estimated body mass index is 26.16 kg/m as calculated from the following: Height as of 11/09/23: 5' 4 . Weight as of 09/20/24: 152 lb 6.4 oz. BP: Patient's last menstrual period was 08/29/2024. ASSESSMENT & PLAN ICD-10-CM 1. Pre-op examination Z01.818 2. Menorrhagia with regular cycle N92.0 3. Abnormal uterine bleeding N93.9 4. Pelvic pain in female R10.2 EMBX: Patient was placed in dorsal lithotomy position with feet in stirrups. A sterile speculum was placed into the vagina and the cervix was visualized. The cervix was grasped with a single tooth tenaculum. The endometrial pipette was placed through the cervix into the uterus, endometrial curettage was performed and sampling was obtained, endometrial curettings were placed in formalin, and single tooth tenaculum was removed. Excellent hemostasis was assured. All instruments were removed from vagina. Pre Op: Patient is doing well but has complaints of bleeding and pelvic pain. Patient has tried hormone therapy in the past but all attempts to subside patients issues have failed. I have discussed conservative management vs. surgical management with the patient in detail and patient desires surgical management at this time. Patient will undergo Endometrial Ablation with Maggie on 11/04/2024. Surgical consents were signed, mmc was reviewed, and patient is to proceed to [facility] OR. Follow Up: Patient is to follow up between 1-2 weeks post op to assess proper healing and recovery from procedure. Documented by Miguelina Bright LPN on behalf of: Christian Travis DO documented in this encounter [facility] History of Present illness Narrative 09-20-2024 Nona Izquierdo LPN - 09/20/2024 9:40 AM EST Note Date & Type Note Facility 09-20-2024 History of Presen t illness Narrative Reason for Appointment: Patient ID: Sachi Collins is a 39 y.o. female who presents for Menorrhagia Patient presents today for Acute Visit. MEDICATIONS No current outpatient medications ALLERGIES Allergies Allergen Reactions Hydrocodone-Acetaminophen Itching Has been tolerating percolone/percocet without issue Penicillins GI intolerance Other Reaction(s): Vomiting Wound Dressing Adhesive Other Reaction(s): Other: See Comments Blistering Vancomycin Rash Denise syndrome PROBLEMS Active Ambulatory Problems Diagnosis Date Noted No Active Ambulatory Problems Resolved Ambulatory Problems Diagnosis Date Noted No Resolved Ambulatory Problems Past Medical History: Diagnosis Date Hydrocephalus (CMS/HCC) HISTORY PAST MEDICAL HISTORY SOCIAL HISTORY Past Medical History: Diagnosis Date Hydrocephalus (CMS/HCC) Social History Tobacco Use Smoking status: Every Day Current packs/day: 0.50 Types: Cigarettes Smokeless tobacco: Never Substance Use Topics Alcohol use: Yes Drug use: Not on file FAMILY HISTORY Family History Problem Relation Name Age of Onset Rheum arthritis Mother SURGICAL HISTORY Past Surgical History: Procedure Laterality Date BRAIN SURGERY SHUNT CT GUIDED IMAGING FOR STEREOTACTIC LOCALIZATION 09/26/2014 CT GUIDED IMAGING FOR STEREOTACTIC LOCALIZATION REVIEW OF SYSTEMS Review of Systems: Review of Systems Constitutional: Negative. HENT: Negative. Eyes: Negative. Respiratory: Negative. Cardiovascular: Negative. Gastrointestinal: Negative. Genitourinary: Positive for menstrual problem. Musculoskeletal: Negative. Skin: Negative. Neurological: Negative. All other systems reviewed and are negative. Hematological: Negative. Endocrine: Negative. Allergic/Immunologic: Negative. OBJECTIVE Objective: Physical Exam Constitutional: Appearance: Normal appearance. She is well-developed. Cardiovascular: Rate and Rhythm: Normal rate and regular rhythm. Pulmonary: Effort: Pulmonary effort is normal. Breath sounds: Normal breath sounds. Abdominal: General: Bowel sounds are normal. There is no distension. Palpations: Abdomen is soft. Tenderness: There is no abdominal tenderness. There is no guarding or rebound. Musculoskeletal: General: No swelling. Normal range of motion. Right lower leg: No edema. Left lower leg: No edema. Neurological: Mental Status: She is alert and oriented to person, place, and time. Skin: General: Skin is warm and dry. Psychiatric: Mood and Affect: Mood normal. Behavior: Behavior normal. Vitals and nursing note reviewed. Exam conducted with a rehab spec present. Vitals: Estimated body mass index is 26.16 kg/m as calculated from the following: Height as of 11/09/23: 5' 4 . Weight as of this encounter: 152 lb 6.4 oz. BP: 110/82 Patient's last menstrual period was 08/29/2024. ASSESSMENT & PLAN ICD-10-CM 1. Menorrhagia with regular cycle N92.0 Pt presents with complaints of heavy cycles. Pt has had a tubal prior. Pt given labs and ultrasound orders to have obtained. Pt desires surgical management. Pt to be scheduled for Endometrial ablation, pt to return for embx/preop Documented by Nona Izquierdo LPN on behalf of: Christian Travis DO documented in this encounter [facility] Clinical Note 03-21-2024 Note Date & Type Note Facility 03-21-2024 Note XR FOOT RT MIN 3 VWS Procedure: Right foot radiographs performed Number of views:3 History:Pain Comparison:04/11/2012 Findings: There is no fracture, dislocation, or destructive lesion. Status post bunionectomy Impression: No acute findings. Finalized by Phyllis Moe DO on 03/21/2024 5:58 PM [facility] Clinical Note 09-22-2020 Note Date & Type Note Facility 09-22-2020 Note Patient Outreach ([facility]) SACHI COLLINS ([id number]) 1985 F Date Time Provider Department 09/22/20 [facility] During your visit today, we recorded the following information about you: Allergies As of Date: 09/22/2020 Noted Allergy Reaction PENICILLINS 02/02/2013 11 - Vomiting TAPE (ADHESIVE TAPE (ROSINS)) 02/08/2013 14 - Other: See Comments Comments: Blistering VANCOMYCIN 02/08/2013 2 - Rash Comments: Denise syndrome VICODIN (HYDROCODONE-ACETAMINOPHE*02/08/2013 9 - Itching Comments: Has been tolerating percolone/percocet without issue Date Reviewed: 02/16/2020 Reviewed by: Liz Armando - Fully Assessed Order(s):SARS-COVID VACCINE 1ST DOSE APPT [23063VJJ] Order #: [id number] FUTURE Prescriptions as of 09/22/2020 Sig: RIZATRIPTAN 10 MG TABLET Take 1 tablet by mouth as nee* ZOLMITRIPTAN 5 MG TABLET Take 1 tablet by mouth as nee* Problem List As Of Date 09/22/2020 Noted Resolved Postoperative stitch abscess [T81.41XA] 02/04/2013 Urinary tract infection [N39.0] 02/04/2013 S/P LABORATORY SCIENTIST shunt [Z98.2] 06/12/2013 More... Hydrocephalus [G91.9] 06/12/2013 More... Headache [R51] 09/20/2014 More... Nausea and vomiting [R11.2] 09/25/2014 More... Chronic migraine without aura, with intractable*10/02/2014 Medication overuse headache [G44.40] 10/02/2014 Chronic daily headache [R51.9] 10/02/2014 Encounter Status:Closed by [email or web address], PRODUSER on 09/25/20 [facility] Evaluation note Note Date & Type Note Facility Evaluation note Diagnosis Menorrhagia with regular cycle Need for prophylactic antibiotic Encounter for long-term (current) use of antibiotics documented in this encounter [facility] Evaluation note Note Date & Type Note Facility Evaluation note No assessment information availa [facility] Work Phone: Evaluation note Note Date & Type Note Facility Evaluation note Diagnosis Pre-op examination Menorrhagia with regular cycle Abnormal uterine bleeding Unspecified disorder of menstruation and other abnormal bleeding from female genital tract Pelvic pain in female Unspecified symptom associated with female genital organs documented in this encounter [facility] Summary Purpose Family History No Family History Records FoundNo Family History Records FoundNo Family History Records FoundNo Family History Records FoundNo Family History Records FoundNo Family History Records FoundNo Family History Records Found Advance Directives No Advanced Directives Records FoundNo Advanced Directives Records FoundNo Advanced Directives Records FoundNo Advanced Directives Records FoundNo Advanced Directives Records FoundNo Advanced Directives Records FoundNo Advanced Directives Records Found Additional Source Comments INFORMATION SOURCE (unrecogn ized section and content) DATE CREATED AUTHOR 01/28/2018 [facility] DATE CREATED AUTHOR AUTHOR'S ORGANIZ ATION 09/25/2020 [facility] DATE CREATED AUTHOR AUTHOR'S ORGANIZ ATION 09/19/2021 [facility] DATE CREATED AUTHOR AUTHOR'S ORGANIZ ATION 09/21/2024 [facility] DATE CREATED AUTHOR AUTHOR'S ORGANIZ ATION 09/30/2024 [facility] DATE CREATED AUTHOR AUTHOR'S ORGANIZ ATION 10/13/[address] [facility] DATE CREATED AUTHOR AUTHOR'S ORGANIZ ATION 10/16/[address] [facility] Source Comments (unrecognize d section and content) In the event this informatio n is protected by the Federal Confidentiality of Alcohol and Drug Abuse Patient Records regulations: The Federal rules restrict any use of the information to criminally investigate or prosecute any alcohol or drug abuse patient.[facility] Care Teams (unrecognized sec tion and content) Bell Captain Relationship Specialty Start Date End Date Urban Newton MD [address] [address] PCP - General Family Medicine 09/11/14 Bell Captain Relationship Specialty Start Date End Date Felicita Celaya MD [address] [place] [address] PCP - [facility] 10/26/23 Bailee Villavicencio MD [address] [place] [address] Referring Physician Pediatrics 11/09/23 Bell Captain Relationship Specialty Start Date End Date Felicita Celaya MD [address] [place] [address] PCP - NOMAbi Hawkins [facility] 10/26/23 Bailee Villavicencio MD [address] [place] [address] Referring Physician Pediatrics 11/09/23 Team Status: Inactive Member Role Status Dates Christian Travis DO Attending Provider Active Start : October 10, 2024 End: October 10, 2024 Bell Captain Relationship Specialty Start Date End Date Felicita Celaya MD [address] [place] [address] PCP Eric Hawkins [facility] 10/26/23 Bailee Villavicencio MD [address] [place], [place] [id number] Referring Physician Pediatrics 11/09/23 Reason for Visit (unrecogniz ed section and content) Reason Comments Menorrhagia Reason Comments EMBX Pre-op Visit Goals (unrecognized section and content) Goals may be documented in a n alternate section FOR RECORDS PERTAINING TO PATIENTS WHO ARE OR HAVE BEEN ENROLLED IN A CHEMICAL DEPENDENCY/SUBSTANCEABUSE PROGRAM, SOME INFORMATION MAY BE OMITTED. This clinical summary was aggregated from multiple sources. Caution should be exercised in using it in the provision of clinical care. This summary normalizes information from multiple sources, and as a consequence, information in this document may materially change the coding, format and clinical context of patient data. In addition, data may be omitted in some cases. CLINICAL DECISIONS SHOULD BE BASED ON THE PRIMARY CLINICAL RECORDS. [facility]. provides no warranty or guarantee of the accuracy or completeness of information in this document.
--- NOTE | 2024-10-26 11:35 | XR_ITS ---
The [address] [address] Patient Name: SACHI BROWN MRN: [id number] date: 1985 Sex: F Assigned Patient Location: [facility] Current Patient Location: [facility] Accession/Order Number: [id number] Exam Date: 10/26/2024 12:05 Report Date: 10/26/2024 12:07 At the request of: LAURA MONROE DO Procedure: XR chest 2V PA AND LATERAL CHEST: CLINICAL HISTORY: Preop clearance for endometrial ablation. History of tobacco use. COMPARISON: None There is no focal parenchymal consolidation, effusion or pneumothorax. The cardiac, hilar and mediastinal silhouettes are within normal limits. There is no vascular congestion. The visualized bony thorax is intact. There is slight dextroscoliotic curvature. Ventriculoperitoneal shunt tubing is noted traversing the anterior left chest wall and at the distal right neck. XR/XR chest 2V IMPRESSION: NO ACUTE CARDIOPULMONARY ABNORMALITY. Impression dictated by: Nona Paz M.D.10/26/2024 12:07 PM Dictation Location: [place] [address] Electronically authenticated by: [id number] Y Date: 10/26/2024 12:07
== END 2024-10-26 10:01 | disposition home or self-care (01) ==
PROVIDERS: Visit Provider Obstetrics & Gynecology
DX: Z01.810 Encounter for preprocedural cardiovascular examination (principal); N92.0 Excessive and frequent menstruation with regular cycle; N93.9 Abnormal uterine and vaginal bleeding, unspecified; R10.2 Pelvic and perineal pain
CPT/HCPCS: 71046

== ENCOUNTER 2024-11-04 06:06 | Day surgery (SDC) | payer MEDICAID, SELFPAY ==
[2024-10-26 11:47] VITALS: BP 96/66; PULSE 67; TEMP 36.3; O2SAT 99; BMI 27.2
--- OUTSIDE RECORDS SUMMARY | 2024-11-04 06:08 | XMS_ITS | CCD ---
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 result. In such cases, another test should be performed with a new specimen in 48-72 hours. If early is suspected clinically in this setting, correlation with quantitative serum b-hCG level is suggested. [employer] has confirmed the use of plasma for this test. This has not been cleared or approved by the U.S. Food and Drug Administration. The FDA has determined that such clearance is not necessary. Performed By: #### H #### [facility] [address] [place] [address] Local Driver: Brendan Chua MD XR FEMUR LEFT (MIN [...] by: Bob Perkins 09/19/20 Final result Normal [facility] XR HIP 2-3 VW W PELVIS LEFTo [...] Felicita Arreguin MD 09/19/20 Final result Normal [facility] XR SHOULDER RIGHT (MIN 2 VIE WS)on [...] Ron Bernabe MD 09/19/20 Final result Normal [facility] CBC AUTO DIFFon 12-25-2017 Basophils Auto #/vol (Bld) 0.1 103/ul Normal 0.0-0.1 [facility] Comment on above: Performed By: #### C BC ####[facility] [address] [place], [place] [address]Mkkvhg Nona Basophils/100 WBC Auto (Bld) 0.6 % Normal 0.2-2.0 [facility] Comment on above: Performed By: #### C BC ####[facility] X[address] [place], [place] [address]Ekaxot Nona Eosinophils 0.1 103/ul Normal 0.0-0.7 [facility] Comment on above: Performed By: #### C BC ####[facility] [address] [place] [address]Gerken [place] Eosinophils/100 leukocytes 0.8 % Critically low 0.9-7.0 [facility] Comment on above: Performed By: #### C BC ####[facility] [address] [place] [address]Gerken [place] Erythrocyte distribution width Auto Ratio (RBC) 14.8 % Normal 11.0-15.0 [facility] Comment on above: Performed By: #### C BC ####[facility] [address] [place] [address]Gerken [place] Erythrocytes (RBC) 4.48 106/ul Normal 4.20-5.40 [facility] Comment on above: Performed By: #### C BC ####[facility] T[address] [place], [place] [address]Rwarfk Nona Hematocrit (HCT) 37.8 % Normal 36.0-48.0 [facility] Comment on above: Performed By: #### C BC ####[facility] U[address] [place], [place] [address]Mrlfsb N[place] Hemoglobin mass conc (Bld) 12.6 g/dL Normal 12.0-16.0 [facility] Comment on above: Performed By: #### C BC ####[facility] Zzngjljcwc[address] [place] IG # 0.02 10e3/ul Normal 0.00-0.03 [facility] Comment on above: Performed By: #### C BC ####[facility] Fhzhrwinzw[address] [place] IG % 0.2 % Normal 0.0-0.5 [facility] Comment on above: Performed By: #### C BC ####[facility] Jfuypmpdva6[address] [place] Lymphocytes 2.2 103/ul Normal 1.2-3.8 [facility] Comment on above: Performed By: #### C BC ####[facility] [address] [place] [address] Nona Lymphocytes/100 leukocytes 25.8 % Normal 20.5-60.0 [facility] Comment on above: Performed By: #### C BC ####[facility] [address] [place] [address] Nona MANUAL DIFF REQ NO Normal [facility] Comment on above: Performed By: #### C BC ####[facility] [address] [place] [address] Nona MCH 28.1 pg Normal 26.7-34.0 [facility] Comment on above: Performed By: #### C BC ####[facility] Dqqjetadut15[address] [place] MCHC mass conc (RBC) 33.3 g/dL Normal 29.9-35.2 [facility] Comment on above: Performed By: #### C BC ####[facility] [address] [place] [address] Nona MCV 84.4 fL Normal 81.0-99.0 [facility] Comment on above: Performed By: #### C BC ####[facility] [address] [place] [address] Onna Monocytes 0.4 103/ul Normal 0.3-0.8 [facility] Comment on above: Performed By: #### C BC ####[facility] C[address]reilekw50[address] [place], [place] [address]Swzuzj Nona Monocytes/100 leukocytes 5.1 % Normal 1.7-12.0 [facility] Comment on above: Performed By: #### C BC ####[facility] F[address] [place], [place] [address]Puitzo Nona Neutrophils 5.8 103/ul Normal 1.4-6.5 [facility] Comment on above: Performed By: #### C BC ####[facility] [address] [place], [place] [address]Uxgxit Nona Neutrophils/100 WBC Auto (Bld) 67.5 % Normal 43.0-75.0 [facility] Comment on above: Performed By: #### C BC ####[facility] L[address]8720 [place], [place] [address]Efinpy Karen Platelet mean volume (PMV) 9.1 fL Critically low 9.5-13.5 [facility] Comment on above: Performed By: #### C BC ####[facility] Hnztnxsarn1814 [place], [place] [address]Ieegtl Nona Platelets 315 103/ul Normal 150-450 [facility] Comment on above: Performed By: #### C BC ####[facility] Qyuywe[address]yc7326 [place], [place] [address]Trtjwp Nona WBC (Leukocytes) 8.7 103/ul Normal 4.0-11.0 [facility] Comment on above: Performed By: #### C BC ####[facility] Dyljqwvhbi1209 [place], [place] [address]Hqnksc Karen OPERATIVE NOTEon 12-25-2017 OPERATIVE NOTE OPERATIVE NOTEOPERAT ION DATE: 0-5-72JEWQFJJQOF:General. SISTANT:ZAIN AndersonOPERATIVE DIAGNOSIS: Desires permanent sterilization.POSTOPERATIVE DIAGNOSIS:Same [...] needle counts were correct x2. Normal [facility] PREG QUANT HCGon 12-25-2017 HCG Qn SEE BELOW Normal [facility] Comment on above: Result Comment: 5-50 0-1 WEEK 40-300 1-2 WEEKS 100-1,000 2-3 WEEKS 500-6,000 3-4 WEEKS 5,000-200,000 1-2 MONTHS 10,000-100,000 2-3 MONTHS 3,000-50,000 2ND TRIMESTER 1,000-50,000 3RD TRIMESTER Performed By: #### P REGQNT ####[facility] Rwjwzatwgi[address] [place] HCG QUANT <2.39 Normal [facility] Comment on above: Performed By: #### P REGQNT ####[facility] Uktowjjawc0090 [address] [place] PAP ACOG PANEL 2: 30 to 65on 12-23-2017 Age Gdln ACOG Testing 30-65 Normal [facility] Comment on above: Performed By: #### 4 [id number] ####[facility] [address] [place] [address] COMMENT Comment Normal [facility] Comment on above: Result Comment: [id number] at: WB Performed By: #### 4 [id number] ####[facility] Cuwytyyymr[address]58 [address] [place] DIAGNOSIS: Comment Normal [facility] Comment on above: Result Comment: NEGA TIVE FOR INTRAEPITHELIAL LESION AND MALIGNANCY.THIS SPECIMEN WAS RESCREENED PART OF OUR FORGER HELPER PROGRAM.Performed at: WB Performed By: #### 4 [id number] ####[facility] [address] [place] [address] HPV Aptima Positive Abnormal Negative [facility] Comment on above: Result Comment: This test was developed and its performance characteristicsdetermined by [facility]. It has not been cleared or approvedby the Food and Drug Administration.This test detects fourteen high-risk HPV types (16/18/31/33/35/39/45/51/52/56/58/59/66/68) without differentiation.Performed at: =G Performed By: #### 4 [id number] ####[facility] Pbxupccvjd[address] HPV Genotype 16 Negative Normal Negative [facility] [place] Comment on above: Result Comment: This test was developed and its performance characteristicsdetermined by [employer]. It has not been cleared or approvedby the Food and Drug Administration.Performed at: =G Performed By: #### 4 [id number] ####[facility] [address] [place] [address] HPV Genotype 18,45 Negative Normal Negative [facility] Comment on above: Result Comment: This test was developed and its performance characteristicsdetermined by [employer]. It has not been cleared or approvedby the Food and Drug Administration.Performed at: =G Performed By: #### 4 [id number] ####[address] Methodology: Comment Normal [facility] Comment on above: Result Comment: This liquid based SurePath(R) pap test was screened with theassistance of an image guided system.Performed at: WB Performed By: #### 4 [id number] ####[facility] [address] [place] [address] Note: Comment Normal [facility] Comment on above: Result Comment: The Pap smear is a screening test designed to aid in the detection ofpremalignant and malignant conditions of the uterine cervix. It is not adiagnostic procedure and should not be used as the sole means of detectingcervical cancer. Both false-positive and false-negative reports do occur. .Performed at: WB Performed By: #### 4 [id number] ####[facility] [address] [place] [address] Performed by: Comment Normal [facility] Comment on above: Result Comment: Yamileth Bergeron, Optimization Engineer (ASCP)Performed at: WB Performed By: #### 4 [id number] ####[facility] [address] [place] [address] QC reviewed by: Comment Normal [facility] Comment on above: Result Comment: Ariel Harris, Supervisory Optimization Engineer (ASCP)Performed at: WB Performed By: #### 4 [id number] ####[facility] Zancmumsxw3784 [address] [place] Specimen adequacy: Comment Normal [facility] Comment on above: Result Comment: Sati sfactory for evaluation. Endocervical and/or squamous metaplasticcells (endocervical component) are present.Performed at: WB Performed By: #### 4 [id number] ####[facility] Emgsmwjqta10[address] [place] . . Normal [facility] Comment on above: Result Comment: Perf ormed at: WB Performed By: #### 4 [id number] ####[facility] Lsbkjzikfz[address] US PELVIS AND TRANSVAGon US PELVIS AND TRANSVAG [address] [place] [address] Patient: SACHI COLLINS Exam Date: 12/14/2017DOB: 1985 Gender:F : DR CHRISTIAN TRAVIS . Admission #: [id number] : Order #: [id number] HERE TO VIEW EXAM RADIOLOGY REPORT PROCEDURE: [...] M.D. on 12/14/2017 at 17:05 Normal [facility] CBC AUTO DIFFon 11-13-2017 Basophils Auto #/vol (Bld) 0.1 103/ul Normal 0.0-0.1 [facility] Comment on above: Performed By: #### C BC ####[facility] Rkwyqszcxu6652 [place], [place] [address]Wwvbew Nona Basophils/100 WBC Auto (Bld) 0.6 % Normal 0.2-2.0 [facility] Comment on above: Performed By: #### C BC ####[facility] [address] [place] [address]Zjaqcv Nona Eosinophils 0.1 103/ul Normal 0.0-0.7 [facility] Comment on above: Performed By: #### C BC ####[facility] [address] [place] [address]Zagsrk Nona Eosinophils/100 leukocytes 0.6 % Critically low 0.9-7.0 [facility] Comment on above: Performed By: #### C BC ####[facility] [address] [place] [address]Vpfmkw Nona Erythrocyte distribution width Auto Ratio (RBC) 16.1 % Critically high 11.0-15.0 [facility] Comment on above: Performed By: #### C BC ####[facility] [address] [place] [address]Asmcki Nona Erythrocytes (RBC) 4.60 106/ul Normal 4.20-5.40 [facility] Comment on above: Performed By: #### C BC ####[facility] [address]ib[address]6254 [place], [place] [address]Hcnhzq Nona Hematocrit (HCT) 38.7 % Normal 36.0-48.0 [facility] Comment on above: Performed By: #### C BC ####[facility] Wzatspyymq5[address] [place] Hemoglobin mass conc (Bld) 12.9 g/dL Normal 12.0-16.0 [facility] Comment on above: Performed By: #### C BC ####[facility] [address] [place] [address] Nona IG # 0.03 10e3/ul Normal 0.00-0.03 [facility] Comment on above: Performed By: #### C BC ####[facility] [address] [place] [address] Nona IG % 0.4 % Normal 0.0-0.5 [facility] Comment on above: Performed By: #### C BC ####[facility] [address] [place] [address] Nona Lymphocytes 2.2 103/ul Normal 1.2-3.8 [facility] Comment on above: Performed By: #### C BC ####[facility] [address] [place] [address] Nona Lymphocytes/100 leukocytes 26.1 % Normal 20.5-60.0 [facility] Comment on above: Performed By: #### C BC ####[facility] [address] [place] [address] Nona MANUAL DIFF REQ NO Normal [facility] [place] Comment on above: Performed By: #### C BC ####[facility] [address] [place] [address] Nona MCH 28.0 pg Normal 26.7-34.0 [facility] Comment on above: Performed By: #### C BC ####[facility] [address] [place] [address] Nona MCHC mass conc (RBC) 33.3 g/dL Normal 29.9-35.2 [facility] Comment on above: Performed By: #### C BC ####[facility] [address] [place] [address] Nona MCV 84.1 fL Normal 81.0-99.0 [facility] Comment on above: Performed By: #### C BC ####[facility] S[address]ytiq8493 [place], [place] [address]Gyfpez Nona Monocytes 0.5 103/ul Normal 0.3-0.8 [facility] Comment on above: Performed By: #### C BC ####[facility] [address]own4782 [place], [place] [address]Esfiko Nona Monocytes/100 leukocytes 5.5 % Normal 1.7-12.0 [facility] Comment on above: Performed By: #### C BC ####[facility] Dlxivweigx1676 [place], [place] [address]Kbufaq Nona Neutrophils 5.5 103/ul Normal 1.4-6.5 [facility] Comment on above: Performed By: #### C BC ####[facility] [address] [place] [address]Cgeyio Nona Neutrophils/100 WBC Auto (Bld) 66.8 % Normal 43.0-75.0 [facility] Comment on above: Performed By: #### C BC ####[facility] [address] [place] [address]Egctnk Nona Platelet mean volume (PMV) 9.7 fL Normal 9.5-13.5 [facility] Comment on above: Performed By: #### C BC ####[facility] Ozpilqdnqt9420 [place], [place] [address]Obyocg Nona Platelets 267 103/ul Normal 150-450 [facility] Comment on above: Performed By: #### C BC ####[facility] Ilenqhrpct4074 [place], [place] [address]Wmcyid Nona WBC (Leukocytes) 8.3 103/ul Normal 4.0-11.0 [facility] Comment on above: Performed By: #### C BC ####[facility] Xacaidwkyk4833 [place], [place] [address]Rjqkcw Nona FERRITINon 11-13-2017 FERRITIN 6.2 ng/mL Normal 6.2-137.0 [facility] Comment on above: Performed By: #### F ERR ####[facility] [address]qr[address] [place] [address]Gerken [place]ona PROF 14(COMP METB)on 018 Alanine aminotransferase (ALT) 30 U/L Normal 9-52 [facility] Comment on above: Performed By: #### C BENEDICT, TSH ####[facility] [address]cj[address]jc[address] [place] [address]Gerken [place]ona Albumin 4.5 g/dL Normal 3.5-5.0 [facility] Comment on above: Performed By: #### C BENEDICT, TSH ####[facility] Apujajqomc[address] [place] Albumin/Globulin Ratio 1.9 {ratio} Normal [facility] Comment on above: Performed By: #### C BENEDICT, TSH ####[facility] [address] [place], [place] [address]Gerken [place] Alkaline phosphatase (ALP) 44 U/L Normal 38-126 [facility] Comment on above: Performed By: #### C BENEDICT, TSH ####[facility] [address] [place], [place] [address]Gerken Nona Anion gap 13.1 mmol/L Normal [facility] Comment on above: Performed By: #### C BENEDICT, TSH ####[facility] [address] [place], [place] [address]Ger[address] [place] Aspartate aminotransferase (AST) 18 U/L Normal 14-36 [facility] Comment on above: Performed By: #### C BENEDICT, TSH ####[facility] [address]dvbe76[address] [place] [address]Gerken [place] Bilirubin Ql (U) 0.5 mg/dL Normal 0.2-1.3 [facility] Comment on above: Performed By: #### C BENEDICT, TSH ####[facility] [address] [address] [address] BUN/Creatinine Ratio 14.9 mg/mg Normal [facility] Comment on above: Performed By: #### C BENEDICT, TSH ####[facility] [address] [place], [place] [address] Calcium 9.9 mg/dL Normal 8.4-10.2 [facility] Comment on above: Performed By: #### C MP, TSH ####[facility] [address] [address] Chloride 102 mmol/L Normal 98-107 [facility] Comment on above: Performed By: #### C MP, TSH ####[facility] [address] [address] [address] CO2 25.0 mmol/L Normal 22.0-30.0 [facility] Comment on above: Performed By: #### C MP, TSH ####[facility] B[address] [place] Creatinine 0.68 mg/dL Normal 0.52-1.04 [facility] Comment on above: Performed By: #### C MP, TSH ####[facility] [address] [place], [place] [address] eGFR (non-black) mL/min/{1.73_m2} Normal >=60 [facility] Comment on above: Performed By: #### C MP, TSH ####[facility] [address] [place], [place] [address] Globulin 2.4 g/dL Normal [facility] Comment on above: Performed By: #### C MP, TSH ####[facility] [address] [address] [address] Glucose mass conc 84 mg/dL Normal 74-106 [facility] Comment on above: Performed By: #### C MP, TSH ####[facility] [address] [place] [address] Potassium molar conc 4.0 mmol/L Normal 3.4-5.0 [facility] Comment on above: Performed By: #### C MP, TSH ####[facility] [address] [place] [address] Protein 6.9 g/dL Normal 6.1-8.2 [facility] Comment on above: Performed By: #### C MP, TSH ####[facility] Bmy[address]bo[address] [place] Sodium 136 mmol/L Critically low 137-145 [facility] Comment on above: Performed By: #### C MP, TSH ####[facility] Eqwbzrvnvi4[address] [place] Urea nitrogen 10.0 mg/dL Normal 7.0-17.0 [facility] Comment on above: Performed By: #### C MP, TSH ####[facility] V[address] [place] TSHon 11-13-2017 Thyroid stimulating hormone (TSH) 1.060 uIU/mL Normal 0.470-4.680 [facility] Comment on above: Performed By: #### C MP, TSH ####[facility] [address] [place] [address] [place] Thyroid stimulating hormone (TSH) SEE BELOW Normal [facility] Comment on above: Result Comment: <0.3 4 UIU/ml HYPERTHYROID 0.34-5.60 UIU/ml EUTHYROID >5.60 UIU/ml HYPOTHYROID Performed By: #### C MP, TSH ####[facility] [address] [place] [address] [place] VITAMIN D 25 OHon 11-13-2017 VIT D 25-OH 35.7 ng/mL Normal [facility] Comment on above: Performed By: #### V ITAD ####[facility] [address] [place] [address] [place] VIT D RANGES SEE BELOW Normal [facility] Comment on above: Result Comment: <20 ng/mL Vit D deficient 20 - <30 ng/mL Vit D insufficient 30 - 100 ng/mL Vit D sufficient >100 ng/mL Potential Toxicity Performed By: #### V ITAD ####[facility] [address] [place] [address] [place] VITDH PLEASE NOTE: NORMAL RANGE CHANGE 03-31-2013, TESTING PERFORMED AT [facility]. Normal [facility] Comment on above: Performed By: #### V ITAD ####[facility] [address] [place] [address] Vital Signs Date Time Vital Sign Value Performing Clinician Austen soriano 10-10-2024 14:33-0400 Body mass index (BMI) [Ratio] 25.77 kg/m2 Christian Angy DO Work Phone: [facility] 10-10-2024 14:33-0400 Body weight 68.09 kg Christian Angy DO Work Phone: [facility] 10-10-2024 14:33-0400 Diastolic blood pressure 74 mm[Hg] Christian Angy DO Work Phone: [facility] 10-10-2024 14:33-0400 Systolic blood pressure 118 mm[Hg] Christian Angy DO Work Phone: [facility] 09-20-2024 09:25-0500 Body mass index (BMI) [Ratio] 26.16 kg/m2 Christian Angy DO Work Phone: [facility] 09-20-2024 09:25-0500 Body weight 69.13 kg Christian Angy DO Work Phone: [facility] 09-20-2024 09:25-0500 Diastolic blood pressure 82 mm[Hg] Christian Angy DO Work Phone: [facility] 09-20-2024 09:25-0500 Systolic blood pressure 110 mm[Hg] Christian Angy DO Work Phone: [facility] Healthcare Encounters Encounter Date Encounter Type Care Provider Facility Start: 10-26-2024 End: 10-26-2024 Clinisync Result Encounter Christian Angy DO Work Phone: [facility] External Department Unsolicited Start: 10-26-2024 End: 10-26-2024 Clinisync Result Encounter Christian Angy DO Work Phone: [facility] External Department Unsolicited Start: 10-10-2024 End: 10-10-2024 Patient encounter procedure Christian Angy DO Work Phone: [facility] Comment on above: Pre-op examination; Menorrhagia with regular cycle; Abnormal uterine bleeding; Pelvic pain in female Start: 10-10-2024 End: 10-10-2024 Preprocedural examination done Christian Careyo DO Work Phone: [facility] Start: 10-10-2024 End: 10-10-2024 ambulatory Christian Travis [facility] Work Phone: Start: 10-10-2024 End: 10-10-2024 Departed Referred Christian Travis DO Work Phone: [facility] Start: 09-28-2024 End: 09-28-2024 ambulatory CHRISTIAN Julia [facility] Start: 09-25-2024 End: 09-25-2024 Emergency department patient visit [facility] Start: 09-20-2024 End: 09-20-2024 Bamboo flowsheet Christian Careyo DO Work Phone: [facility] Start: 09-20-2024 End: 09-20-2024 Bamboo flowsheet Christian Careyo DO Work Phone: [facility] Start: 09-20-2024 End: 09-20-2024 Office outpatient visit 15 minutes Christian Careyo DO Work Phone: [facility] Comment on above: Menorrhagia with reg ular cycle; Need for prophylactic antibiotic Start: 09-20-2024 End: 09-20-2024 ambulatory CHRISTIANNina CAREYO Not Available Start: 07-29-2024 End: 07-29-2024 Emergency department patient visit [facility] Start: 07-29-2024 End: 07-29-2024 Emergency department patient visit [facility] Start: 07-14-2024 End: 07-14-2024 ambulatory Ruperto E Ruperto DO Work Phone: [facility] Comment on above: Pain Questionnaire Start: 07-14-2024 End: 07-14-2024 E-mail encounter from caregiver Ruperto Hickey DO Work Phone: [facility] Start: 04-25-2024 End: 04-25-2024 Emergency department patient visit [facility] Start: 03-21-2024 End: 03-22-2024 Emergency department patient visit GINNY BRIAN [facility] Start: 11-09-2023 End: 11-09-2023 ambulatory MIRELA PARKS Not Available Start: 11-05-2023 End: 11-06-2023 Emergency department patient visit [facility] Start: 10-27-2023 End: 10-27-2023 Emergency department patient visit [facility] Start: 09-19-2020 End: 09-19-2020 Emergency department patient visit CAR[facility] Start: 01-28-2018 Ambulatory CHRISTIAN ANGY Facility:H 1 Start: 12-25-2017 End: 12-25-2017 Ambulatory CHRISTIAN ANGY Facility:H1 Start: 12-15-2017 End: 12-15-2017 Ambulatory CHRISTIAN ANGY Facility:H1 Start: 12-15-2017 End: 12-16-2017 Ambulatory CHRISTIAN ANGY Facility:[facility]1 Start: 12-14-2017 End: 12-15-2017 Ambulatory CHRISTIAN ANGY Facility:[facility]1 Start: 11-13-2017 End: 11-14-2017 Ambulatory CHRISTIAN ANGY Facility:[facility]1 Procedures Date Procedure Procedure Detail Performing Clinician Start: 10-26-2024 XR CHEST 2V Christian Fazi o DO Work Phone: Start: 10-11-2024 Urine test visual color cmprsn meths Christian Angy DO Work Phone: Plan of Treatment Date Care Activity Detail Author Start: 03-27-2025 Influenza vaccination Influenz a Vaccine (Season Ended) [facility] Start: 11-17-2024 End: 11-17-2024 Patient encounter procedure 11/17/2024 8:30 AM EDT Office Visit [facility] [address] [place] [address] [place] [id number] Ritika Cyr PA [address] [place] [address] [facility] Start: 10-10-2024 End: 10-10-2024 Patient encounter procedure 10/10/2024 2:30 PM EDT Procedure Visit [facility] [address] [place] [address] Christian Travis, DO [address] [place], [place] [id number] [facility] Start: 09-20-2024 End: 09-20-2025 aPTT in Blood by Coagulation assay APTT Lab Routine Menorrhagia with regular cycle Expected: 09/20/2024 (Approximate), Expires: 09/20/2025 [facility] Healthcare Comment on above: Expected: 09/20/2024 (Approximate), Expires: 09/20/2025 Start: 09-20-2024 End: 09-20-2025 US Pelvis US Pelvis w/ TV Imaging Routine Menorrhagia with regular cycle Expected: 09/20/2024, Expires: 09/20/2025 [facility] Healthcare Comment on above: Expected: 09/20/2024 , Expires: 09/20/2025 Start: 09-20-2024 End: 09-20-2024 Patient encounter procedure 09/20/2024 9:40 AM EST Office Visit [facility] [address] [address] Christian Travis, DO [address] [place], [place] [id number] Arrived [facility] Comment on above: Arrived Start: 07-18-2024 End: 07-18-2024 Patient encounter procedure 07/18/2024 9:30 AM EST Office Visit [facility] [address] [place], [place] [id number] [place] [address] [address] SHE[address]ERD [address] [place] [id number] C5 and C6 Bulging; Pinched Nerve; Pain Management Comment on above: C5 and C6 Bulging; P inched Nerve; Start: 03-27-2024 Covid-19 Vaccine ( season) Covid-19 Vaccine ( season) [facility] Start: 03-27-2024 Influenza vaccination Influenza Vacc ine (#1) [facility] Start: 2015 Screening for malign ant neoplasm of cervix [facility] Start: 2006 Screening for malign ant neoplasm of cervix [facility] Start: 2004 Hepatitis B Vaccine (1 of 3 - 19+ 3-dose series) Hepatitis B Vaccine (1 of 3 - 19+ 3-dose series) [facility] Start: 2004 Urine microalbumin profile DTaP,Tdap,Td Vaccine (1 - Tdap) [facility] Start: 2003 Anxiety Screening Anxiety Screening [facility] Start: 2003 Depression Screening Depression Scre ening [facility] Start: 2003 Hepatitis C screening Hepatitis C Sc reening [facility] Start: 2003 HIV screening HIV Screening [facility] Biopsy endometrium Biopsy endome trium Procedures Routine Pre-op examination Menorrhagia with regular cycle Abnormal uterine bleeding Pelvic pain in female Ordered: 10/10/2024 [facility] Work Phone: Comment on above: Ordered: 10/10/2024 CBC W Auto Different ial panel - Blood CBC and differential Lab Routine Menorrhagia with regular cycle Ordered: 09/20/2024 [facility] Work Phone: Comment on above: Ordered: 09/20/2024 hCG, quantitative, hCG, quantitative, Lab Routine Menorrhagia with regular cycle Ordered: 09/20/2024 [facility] Comment on above: Ordered: 09/20/2024 Hemoglobin A1c/Hemoglobin.total in Blood Hemoglobin A1c Lab Routine Menorrhagia with regular cycle Ordered: 09/20/2024 [facility] Comment on above: Ordered: 09/20/2024 Prothrombin time (PT ) in Blood by Coagulation assay Protime-INR Lab Routine Menorrhagia with regular cycle Ordered: 09/20/2024 [facility] Comment on above: Ordered: 09/20/2024 Thyrotropin [Units/volume] in Serum or Plasma TSH Lab Routine Menorrhagia with regular cycle Ordered: 09/20/2024 [facility] Comment on above: Ordered: 09/20/2024 Thyroxine (T4) free [Mass/volume] in Serum or Plasma T4, free Lab Routine Menorrhagia with regular cycle Ordered: 09/20/2024 [facility] Comment on above: Ordered: 09/20/2024 Payers Date Payer Category Payer Self-pay 2022 Medicaid [id number] 2022 Medicaid [id number] 2020 Unknown 1985 Unknown [id number] 2.16.8 [id number] 1985 Unknown [id number] 2.16.84 0.1.272626.3.579.2.1259 1985 Unknown [id number] 2.16.84 0.1.397317.3.579.2.1259 1985 Unknown [id number] 2.16.84 0.1.619644.3.579.2.1259 1985 Unknown [id number] 2.16. 840.1.381151.3.579.2.1286 1985 Unknown [id number] 2.16. 840.1.302306.3.579.2.1286 1985 Unknown [id number] 2.16. 840.1.087490.3.579.2.1286 1985 Unknown [id number] 2.16. 840.1.163339.3.579.2.1286 1985 Unknown [id number] 2.16. 840.1.187423.3.579.2.1286 1985 Unknown [id number] 2.16.8 40.1.607838.3.579.2.1286 1985 Unknown [id number] 2.16.8 40.1.722105.3.579.2.1286 1985 Unknown [id number] 2.16.8 40.1.842918.3.579.2.1286 1985 Unknown [id number] 2.16.8 40.1.361694.3.579.2.1286 1985 Unknown [id number] 2.16.8 40.1.580051.3.579.2.1286 1985 Unknown [id number] 2.16.8 40.1.702629.3.579.2.1286 1959 Self-pay [id number] 1959 Unknown [id number] Social History Date Type Detail Facility Start: 02-04-2013 End: 11-09-2023 Tobacco smoking status NHIS Smokes tobacco daily [facility] History of tobacco use [facility] Start: 02-04-2013 End: 11-09-2023 Cigarettes smoked current (pack per day) - Reported 0.1 [facility] Start: 02-04-2013 End: 11-09-2023 Tobacco use and exposure Smokeless tobacco non-user [facility] Start: 02-16-2020 Alcoholic beverage intake Current non-drinker of alcohol (finding) [facility] Start: 02-16-2020 End: 11-09-2023 Tobacco use panel [facility] Adult Depression Screening Assessment 4 [facility] Start: 02-02-2013 Tobacco Comment 7 cigarettes per day [facility] Start: 1985 [facility] at [facility] Start: 11-09-2023 End: 10-12-2024 Alcoholic beverage intake Current drinker of alcohol (finding) [facility] if ever smoked [facility] Work Phone: Start: 10-12-2024 Sex Female (finding[facility] Start: 1985 Sex Assigned At Female F [facility] Medical Equipment Procedure Code Equipment Code Equipment Origin al Text Equipment Identifier Dates Kit Cath Bctsl H km Shunt Myra - [id number] Start: 05-12-2014 Conn Shunt Csf S tr Radpq - [id number] Start: 05-12-2014 Valve Shunt [facility] [employer] Coder Yao 14cm - [id number] Start: 05-12-2014 History of Present illness [...] on 11/04/[address] Travis at [facility]. MEDICATIONS No current outpatient medications ALLERGIES [...] nursing note reviewed. Exam conducted with a hospital admissions officer present. Vitals: Estimated body mass index is [...] reviewed, and patient is to proceed to [facility] OR. Follow Up: Patient is to follow [...] nursing note reviewed. Exam conducted with a hospital admissions officer present. Vitals: Estimated body mass index is 26.16 kg/m as calculated from the following: Height as of 24: 5' 4 . Weight as of this [...] Christian Travis DO documented in this encounter [facility] Clinical Note 03-21-2024 Note Date & Type Note Facility 03-21-2024 Note XR FOOT RT MIN 3 VWS Procedure: Right foot radiographs performed Number of views:3 History:Pain Comparison:04/11/2012 Findings: There is no fracture, dislocation, or destructive lesion. Status post bunionectomy Impression: No acute findings. Finalized by Phyllis Moe DO on 03/21/2024 5:58 PM [facility] Clinical Note 09-22-2020 Note Date & Type Note Facility 09-22-2020 Note Patient Outreach ([place] [facility]) STEPHANIESACHI Henrik ([id number]) 1985 F Date Time Provider Department 09/22/20 [...] issue Date Reviewed: 02/16/2020 Reviewed by: Liz Roberts - Fully Assessed Order(s):SARS-COVID VACCINE 1ST DOSE APPT [[id number]] Order #: [id number] FUTURE Prescriptions as of 09/22/2020 Sig: RIZATRIPTAN 10 MG TABLET Take 1 tablet by mouth as nee* ZOLMITRIPTAN 5 MG TABLET Take 1 tablet by mouth as nee* Problem List As Of Date 09/22/2020 Noted Resolved Postoperative stitch abscess [T81.41XA] 02/04/2013 Urinary tract infection [N39.0] 02/04/2013 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 Hydrocephalus [G91.9] 06/12/2013 More... Headache [R51] 09/20/2014 More... Nausea and vomiting [R11.2] 09/25/2014 More... Chronic migraine without aura, with intractable*10/02/2014 Medication overuse headache [G44.40] 10/02/2014 Chronic daily headache [R51.9] 10/02/2014 Encounter Status:Closed by PHILIP TORRESR on 09/25/20 [facility] Evaluation note Note Date & Type Note Facility Evaluation note Diagnosis Menorrhagia with regular cycle Need for prophylactic antibiotic Encounter for long-term (current) use of antibiotics documented in this encounter [facility] Evaluation note Note Date & Type Note Facility Evaluation note No assessment information availa [facility] Work Phone: Evaluation note Note Date & [...] and content) DATE CREATED AUTHOR 01/28/2018 [facility] DATE CREATED AUTHOR AUTHOR'S ORGANIZ ATION 09/25/2020 [facility] DATE CREATED AUTHOR AUTHOR'S ORGANIZ ATION 09/19/2021 [facility] DATE CREATED AUTHOR AUTHOR'S ORGANIZ ATION 09/21/2024 [facility] DATE CREATED AUTHOR AUTHOR'S ORGANIZ ATION 09/30/2024 [facility] DATE CREATED AUTHOR AUTHOR'S ORGANIZ ATION 10/13/2024 [facility] DATE CREATED AUTHOR AUTHOR'S ORGANIZ ATION 10/16/2024 [facility] Source Comments (unrecognize d section and content) In the event this informatio n is protected by the Federal Confidentiality of Alcohol and Drug Abuse Patient Records regulations: The Federal rules restrict any use of the information to criminally investigate or prosecute any alcohol or drug abuse patient.[facility] Care Teams (unrecognized sec tion and content) Glove Cleaner Relationship Specialty Start Date End Date Urban Newton MD [address] [address] PCP - General Family Medicine 09/11/14 Glove Cleaner Relationship Specialty Start Date End Date Felicita Celaya MD [address] [place] [address] PCP - [facility] 10/26/23 Bailee Villavicencio MD [address] [place] [address] Referring Physician Pediatrics 11/09/23 Glove Cleaner Relationship Specialty Start Date End Date Felicita Celaya MD [address] [place] [address] PCP - [facility] 10/26/23 Bailee Villavicencio MD [address] [facility] [place] [address] Referring Physician Pediatrics 11/09/23 Team Status: Inactive Member Role Status Huy Travis DO Attending Provider Active Start : October 10, 2024 End: October 10, 2024 Glove Cleaner Relationship Specialty Start Date End Date Felicita Celaya MD [address] [place] [address] PCP - [facility] 10/26/23 Bailee Villavicencio MD [address] [facility] [place] [address] Referring Physician Pediatrics 11/09/23 Glove Cleaner Relationship Specialty Start Date End Date Felicita Celaya MD [address] [place] [address] PCP - [facility] 10/26/23 Bailee Villavicencio MD [address] [place] [address] Referring Physician Pediatrics 11/09/23 Reason for Visit [...] BE BASED ON THE PRIMARY CLINICAL RECORDS. [employer] [facility]. provides no warranty or guarantee of the accuracy or completeness of information in this document.
[2024-11-04 06:25] VITALS: BP 101/68; PULSE 81; TEMP 36.2; O2SAT 97; BMI 27.5
[2024-11-04 06:30] LABS: Basophils Absolute Auto 0.1 10^3/uL (0.0-0.1); Basophils Percent Auto 0.9 % (0.2-2.0); Eosinophils Absolute Auto 0.3 10^3/uL (0.0-0.7); Eosinophils Percent Auto 3.1 % (0.9-7.0); Hematocrit 36.2 % (36.0-48.0); Hemoglobin 11.9 g/dL (12.0-16.0); Immature Granulocytes Abs Auto 0.04 10^3/uL (0.00-0.03); Immature Granulocytes Pct Auto 0.4 % (0.0-0.5); Lymphocytes Absolute Auto 2.7 10^3/uL (1.2-3.8); Lymphocytes Percent Auto 26.5 % (20.5-60.0); Mean Corpuscular HGB Conc 32.9 g/dL (29.9-35.2); Mean Corpuscular Hemoglobin 29.5 pg (26.7-34.0); Mean Corpuscular Volume 89.6 fL (81.0-99.0); Mean Platelet Volume 8.8 fL (9.5-13.5); Monocytes Absolute Auto 0.6 10^3/uL (0.3-0.8); Monocytes Percent Auto 6.1 % (1.7-12.0); Neutrophils Absolute Auto 6.3 10^3/uL (1.4-6.5); Platelet Count 372 10^3/uL (150-450); Red Blood Count 4.04 10^6/uL (4.20-5.40); Red Cell Distribution Width 14.4 % (11.0-15.0)
[2024-11-04 06:54] LABS: HCG Quantitative <1 mIU/mL
[2024-11-04] MEDS: LACTATED RINGER'S SOLUTION 1,000 ML 50 ML IV (06:59)
[2024-11-04 08:12] VITALS: BP 83/63; PULSE 79; TEMP 36.2; O2SAT 97
--- NOTE | 2024-11-04 08:17 | PM.ONB ---
Brief Operative Note Date of procedure: 11/04/24 Pre-op diagnosis general: menorrhagia Post-op diagnosis: same as pre-op Procedure: NAME OF PROCEDURE: [ ] Maggie endometrial ablation with d&c hysteroscopy. PROCEDURE: The patient was taken back to the OR where she was prepped and draped in the normal sterile fashion after being placed in the dorsal lithotomy position, after being placed under general anesthesia without difficulty.? A weighted speculum was placed into the vagina. The anterior lip was grasped with a single tooth tenaculum. The patient was then sounded to approximated 8cm. The patient?s cervix was gently dilated using hegardilators. The hysteroscope was passed through the cervix into the uterus where both ostia were seen. No gross evidence of polyps, fibroids or malignancy. gentle currettage was performed, endometrial currettings obtained and sent off to pathology. The cervical length was noted to be 4 cm. The total cavity length is 4cm.? The Maggie ablation apparatus was set to approximately 4cm in length. This was placed through the cervix and into the uterus. After the seal was tested, at that time the total ablation of 120 seconds was performed with the Maggie withoutdifficulty. All instruments were removed from the vagina. Excellent hemostasis noted.? Sponge and lap count correct times 2.? Patient taken to recovery in stable condition. Anesthesia: MAC Surgeon: Christian Travis Estimated blood loss (mL): 5 Pathology: other (endometrial currettings) Condition: stable Disposition: PACU Urinary Catheter Management Urinary Catheter Management Straight: Cath placed during this visit: no
[2024-11-04 08:27] VITALS: BP 96/61; PULSE 68; TEMP 36.1; O2SAT 98
[2024-11-04 08:42] VITALS: BP 105/67; PULSE 61; TEMP 36.2; O2SAT 97
== END 2024-11-04 08:53 | disposition home or self-care (01) ==
PROVIDERS: Visit Provider Obstetrics & Gynecology
PROC: (CPT 952; principal; 2024-11-04 07:30)
DX: N92.0 Excessive and frequent menstruation with regular cycle (principal); N93.9 Abnormal uterine and vaginal bleeding, unspecified; R10.2 Pelvic and perineal pain; F17.210 Nicotine dependence, cigarettes, uncomplicated
CPT/HCPCS: 58563; 36415; 84702; 85025; 88305; J0131; J1100; J1885; J2250; J2371; J2405; J2704; J3010